=== PATIENT | female | born 1945 | race Caucasian/White ===

== ENCOUNTER 2016-06-24 12:50 | Day surgery (SDC) | payer MEDICARE, OTHER ==
[~2016-06-24] VITALS: Ht 165.1 cm; Wt 126.4 kg
[2016-06-24 13:27] LABS: BASOPHILS 0.3 % (0.0-2.0); EOSINOPHILS 2.1 % (0-7); HEMATOCRIT 28.7 % (36.0-48.0); HEMOGLOBIN 8.8 g/dL (12-16); IMMATURE GRANULOCYTES 1.1 % (0-5); LYMPHOCYTES 33.2 % (15-50); MCH 31.7 pg (26.0-34.0); MCHC 30.7 g/dL (31.0-37.0); MCV 103.2 fL (80.0-100.0); MEAN PLATELET VOLUME 8.6 fL (7.4-10.4); MONOCYTES 16.8 % (2-11); NEUTROPHILS 46.5 % (40-80); PLATELET COUNT 183 10x3/uL (130-400); RBC 2.78 10x6/uL (4.00-5.40); RDW 18.1 % (11.5-14.5); WBC 3.8 10x3/uL (4.8-10.8)
[2016-06-24 13:38] LABS: INR 1.21 (0.85-1.17); PROTIME 15.1 SECONDS (11.6-15.0)
[2016-06-24 13:39] LABS: APTT 28.5 SECONDS (22.8-39.4)
[2016-06-24 13:44] LABS: ANION GAP 13.1 mmol/L (8-16); CALCIUM 8.9 mg/dL (8.5-10.1); CARBON DIOXIDE 27.6 mmol/L (21.0-32.0); CREATININE - SERUM 1.4 mg/dL (0.6-1.3); POTASSIUM - SERUM 3.7 mmol/L (3.5-5.1)
[2016-06-24 14:12] VITALS: BP 124/58; Ht 165.1 cm; Wt 126.4 kg
[2016-06-24] MEDS ORDERED: CARAFATE1 G PO (16:33)
[2016-06-24] MEDS ORDERED: PROTONIX40 MG PO (16:33)
--- NOTE | 2016-07-08 11:23 | OP ---
PATIENT NAME: ESSENCE DUNHAM MEDICAL RECORD: [id number] :49 LOCATION:[facility] ADMISSION DATE: SURGEON: ADAN RAMOS MD DATE OF OPERATION: 06/24/2016 PROCEDURE: EGD without biopsy as the patient is still anticoagulated on Eliquis and aspirin. SCOPE: [employer] video gastroscope. MEDICATIONS: Per TIVA anesthesia. The indication for TIVA is history of atrial fibrillation. The patient also has other comorbidities to include arthritis, diabetes mellitus, hypertension, obstructive sleep apnea. REASON FOR THE PROCEDURE: Iron deficiency anemia as well as nausea. RISK FACTORS: Tobacco use. FINDINGS: Informed consent was given. The patient was made comfortable with the above medications. After reaching an adequate level of sedation by slow IV push, Mrs. Dunham was placed on her left side. The endoscope was then advanced under direct visualization through the posterior pharyngeal area and advanced to the distal esophagus. Only mild inflammation was noted. On entering the stomach, a couple of nonhemorrhagic very small arteriovenous malformations were noted within the gastric mucosa. These were not actively bleeding, but are a source of bleeding in the future and should be considered if no other reasonable reason for hemorrhage is noted. We advanced the scope to the antral area where a gastric ulcer was noted. This did not have a visible vessel and was not actively bleeding, but certainly could be a source of slow blood loss. The duodenal bulb to the second portion had some raised erythema tissue with inflammation present. The scope was then withdrawn. IMPRESSION: 1. Very mild distal esophagitis. 2. 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 3. Gastric ulcer at the antral area without a visible vessel, not actively bleeding. 4. Duodenitis moderate in the duodenal bulb and second portion. PLAN: 1. No anti-inflammatory drugs please. 2. Stop tobacco. 3. Pantoprazole 40 mg p.o. q.a.m. and sucralfate 1 g p.o. q.i.d. 4. Repeat the EGD in 8 weeks to document healing of ulcers. If the patient in this able to stop her Eliquis and aspirin for a longer period of time, we will photocoagulate these AVMs. TRANSINT:[id number] Voice Confirmation ID: [id number] DOCUMENT ID: [id number] OPERATIVE REPORT [id number] DUNHAM,ESSENCEADAN LAGUNAS MD at 1123 CC: SARAH MONTES MD and YESSENIA WALTON [phone] DICTATION DATE: 06/24/16 1601 LIBRARY CATALOGING TECHNICIAN: 06/24/162000 [facility] 06/24/16 [facility] [address] [id number]
== END 2016-06-24 17:10 | disposition home or self-care (01) ==
LOC: D.OPS 12:50
PROVIDERS: Anesthesiology
DX: D50.9 Iron deficiency anemia, unspecified (principal); I48.91 Unspecified atrial fibrillation; G47.33 Obstructive sleep apnea (adult) (pediatric); I10 Essential (primary) hypertension; E11.9 Type 2 diabetes mellitus without complications; F17.200 Nicotine dependence, unspecified, uncomplicated; K29.80 Duodenitis without bleeding; K25.9 Gastric ulcer, unspecified as acute or chronic, without hemorrhage or perforation; K20.9 Esophagitis, unspecified

== ENCOUNTER 2017-12-20 06:05 | Day surgery (SDC) | payer MEDICARE, OTHER ==
[~2017-12-20] VITALS: Ht 165.1 cm; Wt 115.9 kg
--- NOTE | ~2017-12-20 | OP ---
PATIENT NAME: ESSENCE DUNHAM MEDICAL RECORD: [id number] :49 LOCATION:[facility] ADMISSION DATE: SURGEON: GUEVARA MONTGOMERY DO DATE OF OPERATION: 12/20/2017 PROCEDURE: Colonoscopy with polypectomy. INDICATIONS FOR PROCEDURE: Anemia, which is iron deficient and a history of colon polyps. Her last colonoscopy was 12/18/14. SCOPE: [employer] video pediatric colonoscope. MEDICATIONS: Propofol 750 mg IV per anesthesia. WITHDRAWAL TIME: 20 minutes. ESTIMATED BLOOD LOSS: Minimal. COMPLICATIONS: None. FINDINGS: Informed consent was given. The patient was made comfortable with the above medication. After reaching an adequate level of sedation by slow IV push, the patient was placed on her left side. A digital rectal examination was performed and was normal other than the finding of some external hemorrhoids. The endoscope was advanced under direct visualization through the rectum to the cecum, confirmed by the presence of the appendiceal orifice and ileocecal valve. The endoscope was slowly withdrawn. Mucosa was carefully examined. The prep quality was fair. A significant amount of time was spent irrigating and suctioning stool from the cecum, ascending colon, and transverse colon for better visualization. There was 1 polyp seen on today's examination. It was located in the ascending colon. It measured approximately 1 cm in size. It was removed using endoscopic mucosal resection technique with injection of isotonic saline underneath the base of the polyp followed by hot snare polypectomy. There was evidence of mild diverticulosis involving the sigmoid colon without diverticulitis. Retroflexion was performed in the rectum with visualization of internal hemorrhoids, which were not bleeding. The endoscope was then withdrawn from the patient. The patient tolerated the procedure well and there were no complications. IMPRESSION: 1. A single polyp located in the ascending colon, removed using endoscopic mucosal resection technique. 2. Mild diverticulosis of the sigmoid colon. 3. Internal and external hemorrhoids without bleeding. PLAN AND RECOMMENDATIONS: 1. Discharge home when recovery parameters are met. 2. Follow up biopsy specimen results. 3. High fiber diet. 4. Continue current medications. 5. Recall colonoscopy in 3-5 years for continued surveillance of a personal history of polyps. TRANSINT:[id number] Voice Confirmation ID: [id number] DOCUMENT ID: [id number] OPERATIVE REPORT [id number] ESSENCE DUNHAM GUEVARA MONTGOMERY DO at 1351 CC: [id number] DICTATION DATE: 12/20/17 0926 [employer]AL: 12/20/17 1234 [facility] 12/20/[address] [id number] [facility] [place] [address]
[~2017-12-20 06:05] MED LIST: CARAFATE1 G PO; PROTONIX40 MG PO
[2017-12-20 06:31] LABS: HEMATOCRIT 37.8 % (36.0-48.0); HEMOGLOBIN 11.9 g/dL (12-16); MCHC 31.5 g/dL (31.0-37.0); MCV 85.7 fL (80.0-100.0); MEAN PLATELET VOLUME 8.9 fL (7.4-10.4); RBC 4.41 10x6/uL (4.00-5.40); RDW 16.1 % (11.5-14.5); WBC 6.7 10x3/uL (4.8-10.8)
[2017-12-20 06:32] LABS: APTT 26.9 SECONDS (22.8-39.4); INR 1.04 (0.85-1.17); PROTIME 13.2 SECONDS (11.6-15.0)
[2017-12-20 06:53] LABS: ANION GAP 13.9 mmol/L (8-16); CALCIUM 9.5 mg/dL (8.5-10.1); CARBON DIOXIDE 28.1 mmol/L (21.0-32.0); CREATININE - SERUM 1.2 mg/dL (0.6-1.3)
[2017-12-20] MEDS ORDERED: AMBIEN10 MG PO (07:41)
[2017-12-20] MEDS ORDERED: REQUIP1 MG PO (07:41)
[2017-12-20] MEDS ORDERED: LYRICA150 MG PO (07:41)
[2017-12-20] MEDS ORDERED: ELIQUIS5 MG PO (07:41)
[2017-12-20] MEDS ORDERED: BUMEX2 MG PO (07:42)
[2017-12-20] MEDS ORDERED: TOPROL XL25 MG PO (07:43)
[2017-12-20] MEDS ORDERED: K-TAB10 MEQ PO (07:43)
[2017-12-20] MEDS ORDERED: NORCO 7.5/325 T1 TA1 PO (07:44)
[2017-12-20] MEDS ORDERED: K-DUR20 MEQ PO (07:45)
[2017-12-20] MEDS ORDERED: LIPITOR20 MG PO (07:46)
[2017-12-20] MEDS ORDERED: NOVOLIN R100 U/ML SQ (07:47)
[2017-12-20] MEDS ORDERED: VICTOZA0.6 MG/0.1 SQ (07:48)
[2017-12-20] MEDS ORDERED: PROTONIX40 MG PO (07:49)
[2017-12-20] MEDS ORDERED: PEPCID AC20 MG PO (07:49)
[2017-12-20 07:55] VITALS: BP 113/72; Ht 165.1 cm; Wt 115.9 kg
== END 2017-12-20 10:20 | disposition home or self-care (01) ==
LOC: D.OPS 06:05
PROVIDERS: Anesthesiology
DX: D12.2 Benign neoplasm of ascending colon (principal); K57.30 Diverticulosis of large intestine without perforation or abscess without bleeding; K64.8 Other hemorrhoids; K64.4 Residual hemorrhoidal skin tags; D50.9 Iron deficiency anemia, unspecified; Z86.010 Personal history of colon polyps; Z01.812 Encounter for preprocedural laboratory examination

== ENCOUNTER 2018-08-24 18:53 | Inpatient (IN) | payer MEDICARE, OTHER ==
[~2018-08-24] VITALS: Ht 165.1 cm; Wt 96.0 kg
[~2018-08-24 18:53] MED LIST changes: +AMBIEN10 MG PO; +BUMEX2 MG PO; +ELIQUIS5 MG PO; +K-DUR20 MEQ PO; +K-TAB10 MEQ PO; +LIPITOR20 MG PO; +LYRICA150 MG PO; +NORCO 7.5/325 T1 TA1 PO; +NOVOLIN R100 U/ML SQ; +PEPCID AC20 MG PO; +REQUIP1 MG PO; +TOPROL XL25 MG PO; +VICTOZA0.6 MG/0.1 SQ
[2018-08-24] MEDS ORDERED: ALENDRONATE SODI5 MG (19:02)
[2018-08-24] MEDS ORDERED: BREO ELLIPTA 11 EACH INH (19:03)
[2018-08-24] MEDS ORDERED: ROCEPHIN 1 GM/D51 G1 IV (19:03)
[2018-08-24] MEDS ORDERED: CALCIUM 500 +1 EAC3 PO (19:03)
[2018-08-24] MEDS ORDERED: CYMBALTA60 MG PO (19:04)
[2018-08-24] MEDS ORDERED: CARDIZEM60 MG PO (19:04)
[2018-08-24] MEDS ORDERED: CYCLOBENZAPRINE10 MG PO (19:04)
[2018-08-24] MEDS ORDERED: PEPCID AC20 MG PO (19:05)
[2018-08-24] MEDS ORDERED: FERROUS SULFAT325 MG PO (19:05)
[2018-08-24] MEDS ORDERED: ZYVOX600 MG PO (19:06)
[2018-08-24 19:19] LABS: BASOPHILS 0.2 % (0-2); EOSINOPHILS 0.6 % (0-7); HEMATOCRIT 28.3 % (36.0-48.0); HEMOGLOBIN 9.3 g/dL (12-16); IMMATURE GRANULOCYTES 0.8 % (0-5); LYMPHOCYTES 6.5 % (15-50); MCH 30.1 pg (26.0-34.0); MCHC 32.9 g/dL (31.0-37.0); MCV 91.6 fL (80.0-100.0); MEAN PLATELET VOLUME 8.7 fL (7.4-10.4); MONOCYTES 14.1 % (2-11); NEUTROPHILS 77.8 % (40-80); RBC 3.09 10x6/uL (4.00-5.40); RDW 16.4 % (11.5-14.5); WBC 13.2 10x3/uL (4.8-10.8)
[2018-08-24 19:20] LABS: PLATELET COUNT 313 10x3/uL (130-400)
[2018-08-24 19:30] LABS: APTT 31.1 SECONDS (22.8-39.4); INR 1.33 (0.85-1.17)
[2018-08-24 19:45] LABS: ALBUMIN 2.3 g/dL (3.4-5.0); ALKALINE PHOSPHATASE 151 U/L (46-116); ALT (SGPT) 46 U/L (10-68); CALC OSMOLALITY 291 mosm/kg (275-300); CALCIUM 9.4 mg/dL (8.5-10.1); CARBON DIOXIDE 27.7 mmol/L (21.0-32.0); CHLORIDE - SERUM 107 mmol/L (98-107); CREATININE - SERUM 2.1 mg/dL (0.6-1.3); GLUCOSE 142 mg/dL (74-106); POTASSIUM - SERUM 4.1 mmol/L (3.5-5.1); PROTEIN - SERUM 6.9 g/dL (6.4-8.2); SODIUM 144 mmol/L (136-145); UREA NITROGEN 21 mg/dL (7-18); eGFR NON AFRICAN AMERICAN 25 mL/min (90-120)
[2018-08-24 20:00] VITALS: BP 128/74
[2018-08-24 20:02] LABS: CKMB 1.4 U/L (0.0-3.6); CREATINE KINASE 27 UL (21-215); PRO BNP 11915 pg/mL (0-125)
[2018-08-24 20:04] LABS: TROPONIN-I < 0.017 ng/mL (0.000-0.060)
--- NOTE | 2018-08-24 20:12 | NUR ---
SPOKE WITH PT'S NURSE MATHEW AT [facility], INFORMED HER THAT PT WILL BE BEING ADMITTED TO HOSPITAL.
--- NOTE | 2018-08-24 21:19 | NUR ---
PT'S IV ROCEPHIN FINISHED.
--- NOTE | 2018-08-24 21:26 | NUR ---
INGRIS LAMB DAUGHTER: [phone]. CAROL DUNHAM DAUGHTER: [phone].
--- NOTE | 2018-08-24 22:05 | NUR ---
Patient arrived from ED via stretcher to 230, positioned in bed and connected to monitor. Patient lethargic, follows instructions with no verbal response. Eyes PERRLA @ 3mm with brisk response, tongue midline. S1/S2 noted uncontrolled Afib on telemetry with HR 127. Breathing is labored on 15L via NRB with O2 sat 97%, lung sounds clear bilateral upper and mid with diminished lower. All pulses palpable with cap refill < 3 sec, skin warm/dry. Unable to assess pain, no further needs at this time. Dr Tenorio paged to notify of arrival, awaiting return call. All VSS and will continue to monitor.
--- NOTE | 2018-08-24 22:08 | NUR ---
Spoke to Dr Tenorio via phone, updated on patient status with new orders received. Cardiology consulted per orders.
--- NOTE | 2018-08-24 22:10 | NUR ---
Spoke to Dr Wolfe via phone, new orders received. 10mg/hr Cardizem ordered, physician to be notified for significant bradycardia.
[2018-08-24 22:19] VITALS: BP 127/101; BMI 36.2
[2018-08-24 22:30] VITALS: BP 127/100
[2018-08-24 23:00] VITALS: BP 128/93
[2018-08-25] VITALS (25 sets, daily range): BP systolic 124–166; BP diastolic 70–108; BMI 36.2
--- NOTE | 2018-08-25 01:00 | NUR ---
Patient sleeping in bed with eyes closed, no s/s of distress at this time. Patient remains Uncontrolled Afib on telemetry with HR 104, breathing is shallow on 7L via HFNC with O2 sat 96%. No further needs at this time, all VSS and will continue to monitor.
--- NOTE | 2018-08-25 02:57 | NUR ---
Reassessment completed per flowsheet. Patient opens eyes spontaneously/follow instructions, inconprehensible sounds noted. S1/S2 noted Controlled Afib on telemetry with HR 78. Breathing is shallow on 7L via HFNC with O2 sat 96%, lung sounds clear bilateral upper and mid with diminished lower. All pulses palpable with cap refill < 3 sec, skin warm/dry. Unable to assess pain, repositioned for comfort. See flowsheet for details, all VSS and will continue to monitor.
--- NOTE | 2018-08-25 05:00 | NUR ---
Patient sleeping in bed with eyes closed, incontinent of urine in bed. Full bed bath/linen change performed, patient HR elevated during movement but returned to previous level after short rest. Denies pain or other needs at this time, all VSS and will continue to monitor.
--- NOTE | 2018-08-25 07:30 | NUR ---
REPORT RECEIVED. PT IN BED AWAKE AND CONFUSED. PT HAS PICC LINE IN WILFREDO. PT HAS CARDIZEM DRIP AT 10ML/HR. PT IS INCONTINENT OF URINE. HEAD TO TOE ASSESSMENT PERFORMED. ON 7L HIGH FLOW NC. WILL CONTINUE TO MONITOR.
--- NOTE | 2018-08-25 09:00 | NUR ---
18FR CAMEJO PLACED AT THIS TIME, CHLORHEXADINE BATH GIVEN, PT TOLERATED WELL
--- NOTE | 2018-08-25 11:15 | NUR ---
PT RESTING QUIETLY. VSS. CARDIZEM DRIP. WILL CONTINUE TO MONITOR.
--- NOTE | 2018-08-25 13:40 | NUR ---
PT FRIEND AT BEDSIDE. TOOK ORAL MEDICATION WITH THIN LIQUIDS WITH NO ISSUES. [facility] NURSE HERE TO CHECK ON PT.
--- NOTE | 2018-08-25 14:21 | NUR ---
SPEECH PATHOLOGIST JUST IN WITH PT.
--- NOTE | 2018-08-25 15:45 | NUR ---
PT RESTING QUIETLY. ON 7L HIGH FLOW NC. O2 SAT 96%. VSS. WILL CONTINUE TO MONITOR.
--- NOTE | 2018-08-25 17:33 | NUR ---
PT ATE A FEW BITES OF HER MEAL THEN STATED SHE DIDN'T HAVE AN APPETITE. OFFERED PUDDING AND APPLESAUCE. DECLINED.
--- NOTE | 2018-08-25 19:00 | NUR ---
REPORT REC'D, PT'S CARE ASSUMED. ASSESSMENT COMPLETED. SEE FLOWSHEETS FOR ALL FINDINGS. PT SLEEPING, AROUSES EASILY WITH VOICES, FOLLOW SIMPLE COMMNADS. CONT AFIB ON DIRECTOR OF CLINICAL SERVICES WITH HR AT 82. CONT CARDIZEM DRIP PER ORDER. RT UPPER ARM PICC LINE INTACT, INFUSING IV FLUIDS VIA PUMP PER ORDER. CAMEJO INTACT TO GRAVITY WITH YELLOW DRAINAGE TO BAG. PPP. CALL LIGHT IN REACH. REPOSITIONED FOR COMFORT. WILL CONT TO MONITOR.
--- NOTE | 2018-08-25 20:55 | NUR ---
PT'S DAUGHTER INGRIS CALLED FOR UPDATE. UPDATED AND QUESTIONS ANSWERED.
--- NOTE | 2018-08-25 22:00 | NUR ---
PT AWAKE WITH HOB UP TAKING PO MEDS PER ORDER WITHOUT DIFFIC. NO S/S OF COUGHING. REPOSITIONED FOR COMFORT. CALL LIGHT IN REACH. CONT TO MONITOR.
--- NOTE | 2018-08-25 23:00 | NUR ---
REASSESSMENT COMPLETED. SEE FOWSHEETS FOR ALL FINDINGS. PT AROUSES EASILY WITH VOICES, DENIES ANY NEEDS AT THIS TIME. NO ACUTE SIGNS OF DISTRESS NOTED. CONT TO MONITOR.
[2018-08-26] VITALS (28 sets, daily range): BP systolic 70–152; BP diastolic 45–92; Ht 165.1 cm; Wt 96.0 kg
--- NOTE | 2018-08-26 01:00 | NUR ---
PT RESTING QUIELTY WITHOUT DISTRESS AT THIS TIME. VSS. NO NEEDS VOICES. CPOC.
--- NOTE | 2018-08-26 03:00 | NUR ---
REASSESSMENT COMPLETED. SEE FLOW SHEETS FOR ALL FINDINGS. NO ACUTE CHANGES IN PT'S CONDITON NOTED. VSS. CONT CARDIZEM DIRIP PER ORDER. CPOC.
--- NOTE | 2018-08-26 05:00 | NUR ---
PT RESTING QUIELTY WITHOUT DISTRESS. NO NEEDS VOICES AT THIS TIME .CALL LIGHT IN REACH. CPOC.
--- NOTE | 2018-08-26 07:05 | NUR ---
REPORT RECEIVED. PT RECEIVING BREATHING TREATMENT. PT HAS CAMEJO. PICC IN RIGHT UPPER ARM WITH CARDIZEM INFUSING AT 10ML/HR. PT ON O2 AT 4L VIA HIGH FLOW NC. PT HAS SORES ON BILATERAL FEET/TOES. DRESSING INTACT. HEAD TO TOE ASSESSMENT PERFORMED. VSS. WILL CONTINUE TO MONITOR. CALL LIGHT IN REACH.
[2018-08-26 07:08] LABS: ANION GAP 16.4 mmol/L (8-16); CALCIUM 8.7 mg/dL (8.5-10.1); CARBON DIOXIDE 27.7 mmol/L (21.0-32.0); CREATININE - SERUM 2.3 mg/dL (0.6-1.3); POTASSIUM - SERUM 4.1 mmol/L (3.5-5.1)
[2018-08-26] MEDS ORDERED: LIPITOR20 MG PO (07:11)
[2018-08-26 07:15] LABS: HEMATOCRIT 26.2 % (36.0-48.0); HEMOGLOBIN 8.5 g/dL (12-16); MCH 29.5 pg (26.0-34.0); MCHC 32.4 g/dL (31.0-37.0); PLATELET COUNT 287 10x3/uL (130-400); RBC 2.88 10x6/uL (4.00-5.40); RDW 16.1 % (11.5-14.5); WBC 12.6 10x3/uL (4.8-10.8)
[2018-08-26 08:37] LABS: LYMPHOCYTES 3 % (15-50); MONOCYTES 10 % (2-11); NEUTROPHILS 86 % (40-80); PLATELET ESTIMATE NORMAL
[2018-08-26 08:38] LABS: ANISOCYTOSIS 2+; HYPOCHROMASIA 2+
--- NOTE | 2018-08-26 09:20 | NUR ---
DR PAEZ IN WITH PT. NO NEW ORDERS AT THIS TIME. PT RESTING QUIETLY. VSS. WILL CONTINUE TO MONITOR.
--- NOTE | 2018-08-26 11:10 | NUR ---
REASSESSMENT DONE. PT RESTING QUIETLY. VSS. WILL CONTINUE TO MONITOR.
--- NOTE | 2018-08-26 11:57 | NUR ---
NUTRITION F/U PT CURRENTLY NPO. WILL PROVIDE DIET WHEN RESUMED BY MD. ASSIST WITH NUTRITION SUPPORT IF NEEDED. RD FOLLOWING
[2018-08-26] MEDS ORDERED: LANTUS INSULIN10 ML SC (12:37)
[2018-08-26] MEDS ORDERED: MULTI-DAY VITAM1 TAB PO (12:41)
[2018-08-26] MEDS ORDERED: MIRALAX17 GM PO (12:43)
[2018-08-26] MEDS ORDERED: ZINC-220220 MG PO (12:46)
[2018-08-26] MEDS ORDERED: NOVOLOG100 UNIT/1 SC (13:04)
--- NOTE | 2018-08-26 13:51 | NUR ---
CARDIZEM DRIP TITRATED DOWN FROM 10MG/HR TO 7.5MG/HR PER DR GREER. HR 85-91. BP 134/62. WILL MONITOR.
--- NOTE | 2018-08-26 15:44 | NUR ---
PT CONTINUING TO BREATH THROUGH MOUTH AND O2 SAT AT 87%. VENTI MASK PUT ON PER RT. O2 SAT CONTINUED TO STAY AROUND 88. PT UP TO 55%. STARTED CALMING DOWN. O2 SAT UP TO 94%. WILL MONITOR AND TITRATE DOWN PER RT.
--- NOTE | 2018-08-26 16:29 | NUR ---
ABG OBTAINED. DR GREER WANTS TO INTUBATE PT. RAYO, SPRING UP SUPERVISOR, CALLED PT'S FAMILY TO CONSENT TO INTUBATION.
--- NOTE | 2018-08-26 16:55 | NUR ---
PT INTUBATED BY DR GREER. 7.5 TUBE. 25CM AT THE LIP. PROPOFOL INFUSING PER ORDERS. SETTINGS PER RT. 96% O2 SAT.
--- NOTE | 2018-08-26 17:30 | NUR ---
DR GREER DOING BRONCHOSCOPY ON PT. FENTANYL PARKING ANALYST INITIATED. BP 91/26. O2 ON 97% ON VENT. NS BOLUS INFUSING AT THIS TIME. HR 133. 1734- 137/84; HR 93.
--- NOTE | 2018-08-26 17:37 | NUR ---
BRONCHOSCOPY DONE. HR 83; O2 SAT 97%; BP IS 94/58.
--- NOTE | 2018-08-26 18:24 | NUR ---
22 GAUGE IV INSERTED INTO RIGHT FOREARM. CARDIZEM DRIP INFUSING AT 5MG/HR INTO SITE.
--- NOTE | 2018-08-26 19:02 | NUR ---
CHANGED FIO2 TO 60% PER ABG RESULT 300
--- NOTE | 2018-08-26 19:20 | NUR ---
REPORT REC'D AND CARE ASSUMED, REC'D PT ON VENT VIA 7.5 ETT TAPED SECURELY AT THE 25CM LIPLINE, SEE FLOWSHEET FOR VENT SETTINGS, PT AROUSABLE TO DEEP STIMULI, TRACKS WITH EYES BUT DOES NOT FOLLOW COMMANDS AT THIS TIME, RIGHT FOREARM PIV WITH CARDIZEM @ 5MG/HR, RIGHT UPPER ARM PICC WITH 3 PRONG EXTENSION NS @ 10CC/HR, FENTANYL @ 50MCG/HR, AND DIPRIVAN @ 10MCG/KG/MIN, BILAT ARMS WITH BRUISES, OGT TAPED SECURELY TO ETT, PLACEMENT VERIFIED VIA SM AIR BOLUS AUSCULTATED OVER EPIGASTRIM, OGT TO LIWS, CAMEJO PATENT DRAINING CLEAR YELLOW URINE, BILAT SCDS INTACT, DRSGS TO RIGHT LEFT GREAT AND SECOND TOE CDI, BILAT SOFT WRIST RESTRAINTS INTACT, VISIBLE TO NURSES STATION
--- NOTE | 2018-08-26 20:15 | NUR ---
PHARMACY CALLED FOR MAXIPIME DOSE NOT LOADED IN PYXIS
--- NOTE | 2018-08-26 21:00 | NUR ---
EVENING MEDS GIVEN ORDERED, BP 89/58, LOPRESSOR HELD AT THIS TIME, WILL CONT TO MONITOR CLOSELY FOR CHANGES.
--- NOTE | 2018-08-26 22:05 | NUR ---
DAUGHTER INGRIS AT BS, UPDATE GIVEN AND [facility] ANSWERED, PT RESTING EYES CLOSED ON VENT, VSS.
--- NOTE | 2018-08-26 23:30 | NUR ---
REASSESSMENT COMPLETED, PT REPOSITIONED UP IN BED AND ONTO RIGHT SIDE SUPPORTED WITH PILLOWS, HOB ELEVATED, RT AT BS CHANGING TUBING AND CANNISTERS, SR UP X 2, BED IN LOW POSITION.
[2018-08-27] VITALS (24 sets, daily range): BP systolic 85–133; BP diastolic 50–87
--- NOTE | 2018-08-27 02:00 | NUR ---
NO CHANGES IN STATUS AT THIS TIME.
--- NOTE | 2018-08-27 04:49 | NUR ---
CHANGED FIO2 TO 50% PER MORNING ABG, PO2 165
--- NOTE | 2018-08-27 05:30 | NUR ---
AM LAB DRAWN FROM RIGHT UPPER ARM PICC LINE AND SENT, NO VISITORS IN AT THIS TIME, VSS.
[2018-08-27 05:48] LABS: BASOPHILS 0.1 % (0-2); EOSINOPHILS 1.5 % (0-7); HEMATOCRIT 21.8 % (36.0-48.0); LYMPHOCYTES 12.5 % (15-50); MCH 28.9 pg (26.0-34.0); MCHC 31.7 g/dL (31.0-37.0); MCV 91.2 fL (80.0-100.0); MEAN PLATELET VOLUME 8.8 fL (7.4-10.4); MONOCYTES 12.5 % (2-11); NEUTROPHILS 72.4 % (40-80); PLATELET COUNT 237 10x3/uL (130-400); RBC 2.39 10x6/uL (4.00-5.40); RDW 15.9 % (11.5-14.5); WBC 7.9 10x3/uL (4.8-10.8)
[2018-08-27 05:49] LABS: HEMOGLOBIN 6.9 g/dL (12-16)
[2018-08-27 06:13] LABS: ALBUMIN 1.8 g/dL (3.4-5.0); ANION GAP 12.3 mmol/L (8-16); BILIRUBIN - TOTAL 0.36 mg/dL (0.2-1.3); CALCIUM 8.5 mg/dL (8.5-10.1); CREATININE - SERUM 2.6 mg/dL (0.6-1.3); POTASSIUM - SERUM 3.3 mmol/L (3.5-5.1); PROTEIN - SERUM 6.1 g/dL (6.4-8.2)
--- NOTE | 2018-08-27 08:12 | NUR ---
UP IN BED ON VENT AT THIS TIME. PT OPENS EYES WHEN SPOKEN TO AND NODS HEAD AT TIMES. DOES NOT FOLLOW COMMANDS. WHEN ASKED PT TO SQUEEZE HANDS SHE NODDED HER HEAD ONLY. PT TURNED Q2H. ORAL CARE PROVIDED Q2H. NO ACUTE DISTRESS NOTED. WILL CONTINUE PLAN OF CARE.
--- NOTE | 2018-08-27 08:26 | NUR ---
PER DR GREER, KEEP PT ON LT LATERAL SIDE.
--- NOTE | 2018-08-27 08:30 | NUR ---
PER DR GREER "DO NOT GIVE BLOOD TODAY BECAUSE PT IS A RISK FOR ACUTE LUNG INJURY." ALSO ORDERED FOR CARDIZEM RATE TO BE DECREASED FROM 5MG/HR TO 2.5MG/HR
--- NOTE | 2018-08-27 09:04 | NUR ---
PER PTS FAMILY, PT SQUEEZED HAND WHEN FAMILY MEMBER WAS TALKING WITH HER.
--- NOTE | 2018-08-27 09:20 | NUR ---
PER DR GREER, TURN OFF CARDIZEM GTT. ALSO OKAY TO HOLD METOPROLOL SINCE HEART RATE TRENDING 54-64.
--- NOTE | 2018-08-27 11:40 | NUR ---
PT NOTED TO ATTEMPT TO SIT UP, PULL ET TUBE WITH RESPIRATIONS IN MID 30S. REORIENTATION PROVIDED. PROPOFOL INCREASED TO ORDER PARAMETERS. TURNED Q2H. ORAL CARE PROVIDED Q2H. WILL CONTINUE PLAN OF CARE.
--- NOTE | 2018-08-27 13:41 | NUR ---
INCONTINENT BOWEL MOVEMENT NOTED AT THIS TIME. TOTAL BED CHANGE PROVIDED ALONG WITH BED BATH, GRETCHEN CARE, CAMEJO CARE ALSO PROVIDED AT THIS TIME. NO ACUTE DISTRESS NOTED. WILL CONTINUE PLAN OF CARE.
--- NOTE | 2018-08-27 15:02 | NUR ---
NO ACUTE DISTRESS NOTED. NO CHANGE. PT OPENS EYES WHEN SPOKEN TO. TURNED Q2H. ORAL CARE PROVIDED Q2H. WILL CONTINUE PLAN OF CARE.
--- NOTE | 2018-08-27 17:04 | NUR ---
UP IN BED RESTING ON VENT WITH EYES CLOSED. NO ACUTE DISTRESS NOTED. BED ALARM ON. VSS. WILL CONTINUE PLAN OF CARE.
--- NOTE | 2018-08-27 19:30 | NUR ---
REC'D PT ON VENT VIA 7.5 ETT TAPED @ 25CM LIPLINE, SEE FLOWSHEET FOR VENT SETTINGS, PT AWAKENS TO VERBAL STIMULI AND FOLLOWS COMMANDS, FALLS BACK TO SLEEP EASILY, RIGHT UPPER ARM SINGLE LUMEN CATHETER WITH NS @ 10CC/HR, FENTANYL @ 50MCG/HR, AND DIPRIVAN @ 30MCG/KG/MIN OR 19.1CC/HR, OGT TAPED SECURELY TO ETT, PLACEMENT VERIFIED VIA SM AIR BOLUS AUSCULTATED OVER EPIGASTRIM, OGT TO LIWS, CAMEJO PATENT DRAINING CLEAR YELLOW URINE, BILAT SCDS INTACT AND ON, BILATERAL DRSGS TO GREAT AND 2ND TOES CDI, BILAT SOFT WRIST RESTRAINTS INTACT, SR UP X 2, BED IN LOW POSITION, VISIBLE TO NURSES STATION.
--- NOTE | 2018-08-27 21:00 | NUR ---
EVENING MEDS GIVEN, NO VISITORS IN AT THIS TIME, PT REPOSITIONED FOR COMFORT, VSS ,WILL CONT TO MONITOR FOR CHANGES
--- NOTE | 2018-08-27 23:15 | NUR ---
REASSESSMENT COMPLETED, PT REPOSITIONED FOR COMFORT, PT COUGHING AGAINST ETT, SUCTIONED WITH SMALL AMOUNT YELLOW TINGED SECRETIONS, DOES NOT FOLLOW COMMANDS AT THIS TIME, VSS, CM- SR, SR UP X 2, BED IN LOW POSITION, VISIBLE TO NURSES STATION.
[2018-08-28] VITALS (24 sets, daily range): BP systolic 92–144; BP diastolic 53–85
--- NOTE | 2018-08-28 01:00 | NUR ---
PT REPOSITIONED FOR COMFORT, ORAL CARE PROVIDED, PT TOLERATED WELL, WILL CONT TO MONITOR FOR CHANGES.
--- NOTE | 2018-08-28 03:00 | NUR ---
REASSESSMENT COMPLETED, NO CHANGES FROM PREVIOUS ASSESSMENT.
--- NOTE | 2018-08-28 04:30 | NUR ---
RADIOLOGY AT BS FOR AM CXR.
--- NOTE | 2018-08-28 05:30 | NUR ---
AM LAB DRAWN AND SENT, PT RESTLESS IN BED, PULLING AT RESTRAINTS, PT REPOSITIONED AND ORAL CARE PROVIDED, VSS, WILL CONTINUE TO MONITOR.
[2018-08-28 06:31] LABS: BASOPHILS 0.3 % (0-2); EOSINOPHILS 3.1 % (0-7); HEMATOCRIT 22.6 % (36.0-48.0); IMMATURE GRANULOCYTES 2.6 % (0-5); LYMPHOCYTES 13.9 % (15-50); MCH 29.6 pg (26.0-34.0); MCHC 32.7 g/dL (31.0-37.0); MCV 90.4 fL (80.0-100.0); MEAN PLATELET VOLUME 8.9 fL (7.4-10.4); MONOCYTES 13.9 % (2-11); NEUTROPHILS 66.2 % (40-80); PLATELET COUNT 261 10x3/uL (130-400)
[2018-08-28 06:34] LABS: WBC 5.8 10x3/uL (4.8-10.8)
[2018-08-28 06:35] LABS: HEMOGLOBIN 7.4 g/dL (12-16)
[2018-08-28 06:53] LABS: ALBUMIN 1.8 g/dL (3.4-5.0); ANION GAP 15.6 mmol/L (8-16); BILIRUBIN - TOTAL 0.39 mg/dL (0.2-1.3); CARBON DIOXIDE 25.7 mmol/L (21.0-32.0); CREATININE - SERUM 2.5 mg/dL (0.6-1.3); POTASSIUM - SERUM 3.3 mmol/L (3.5-5.1)
--- NOTE | 2018-08-28 07:43 | NUR ---
LYING IN BED ON VENT AT THIS TIME. NO ACUTE DISTRESS NOTED. PT OPENS EYES WHEN SPOKEN TO. ABLE TO FOLLOW COMMANDS. TURNED Q2H. ORAL CARE PROVIDED Q2H. WILL CONTINUE PLAN OF CARE.
--- NOTE | 2018-08-28 09:30 | NUR ---
NO ACUTE DISTRESS NOTED. NO CHANGE. PT OPENS EYES WHEN SPOKEN TO AND FOLLOWS COMMANDS. WILL CONTINUE PLAN OF CARE.
--- NOTE | 2018-08-28 10:00 | NUR ---
NOTED ORDER FOR PT TO RECIEVE BLOOD TODAY, PT DOES NOT HAVE BLOOD CONSENT IN CHART. ATTEMPTED TO CALL PTS DAUGHTER/EMERGENCY CONTACT, NO ANSWER RECIEVED WHEN CALLED, VOICEMAIL LEFT. WAITING FOR CALLBACK. WILL CONTINUE PLAN OF CARE.
--- NOTE | 2018-08-28 12:00 | NUR ---
1 U PRBC ADMIN INITIATED AT THIS TIME PER PHYSICIAN ORDERS. NO ACUTE DISTRESS NOTED. WILL CONTINUE PLAN OF CARE.
--- NOTE | 2018-08-28 12:43 | NUR ---
NO ACUTE DISTRESS NOTED. NO CHANGE. VSS. WILL CONTINUE PLAN OF CARE.
[2018-08-28 13:06] LABS: ACID FAST SMEAR Negative (()); AFB SPECIMEN PROCESSING Concentration (())
--- NOTE | 2018-08-28 13:26 | NUR ---
PTS DAUGHTER CAROL AT BEDSIDE AT THIS TIME, ALL QUESTIONS AND CONCERNS ADRESSED. NO ACUTE DISTRESS NOTED. PT RESTING ON VENT AT THIS TIME ON VENT WITH EYES CLOSED. OPENS EYES WHEN SPOKEN TO AND FOLLOWS COMMANDS. NO ACUTE DISTRESS NOTED. WILL CONTINUE PLAN OF CARE.
--- NOTE | 2018-08-28 14:43 | NUR ---
POTASSIUM LEVEL RECHECK NOTED AT 3.9.
--- NOTE | 2018-08-28 16:28 | NUR ---
NO ACUTE DISTRESS NOTED. VSS. NO CHANGE. WILL CONTINUE PLAN OF CARE.
--- NOTE | 2018-08-28 18:28 | NUR ---
NO ACUTE DISTRESS NOTED. PT OPENS EYES TO VOICE AND FOLLOW COMMANDS. NOTED TO HAVE RESPIRATIONS UP TO 35 AT TIMES, ABLE TO CALM PT DOWN AFTER SPEAKING WITH HER. VSS. WILL CONTINUE PLAN OF CARE.
--- NOTE | 2018-08-28 19:10 | NUR ---
Received patient resting in bed on vent with eyes closed, assessment completed per flowsheet. Patient opens eyes spontaneously/follows instructions, ETT 7.5 @ 25cm secured. S1/S2 noted Controlled Afib on telemetry with HR 93. Vent settings A/C R-16 V-450 40% P-5 with O2 sat 98%, crackles noted bilateral upper and mid with diminished lower. Abdomen is soft/round with bowel sounds active x4, non-tender. All pulses palpable with cap refill < 3 sec, skin warm/dry. GLOBAL CEO in use for pain mgmt, oral care/suctioning provided. Repositioned for comfort, see flowsheet for details. All VSS and will continue to monitor.
--- NOTE | 2018-08-28 21:00 | NUR ---
Patient resting in bed on vent with eyes closed, oral care/suctioning provided. HS meds given via OGT without difficulty, repositioned for comfort. No further needs at this time, all VSS and will continue to monitor.
--- NOTE | 2018-08-28 23:00 | NUR ---
Reassessment completed per flowsheet, no chnages noted from previous assessment. S1/S2 noted Controlled Afib on telemetry with HR 91. Vent settings unchanged from previous with O2 sat 97%, crackles noted bilateral upper and mid with diminished lower. All pulses palpable with cap refill < 3 sec, skin warm/dry. Oral care/suctioning provided, repositioned for comfort. No further needs at this time, see flowsheet for details. All VSS and will continue to monitor.
[2018-08-29] VITALS (26 sets, daily range): BP systolic 108–165; BP diastolic 52–98
--- NOTE | 2018-08-29 01:00 | NUR ---
Patient sleeping in bed on vent with eyes closed, no s/s of distress at this time. Oral care/suctioning provided, repositioned for comfort. All VSS and will continue to monitor.
--- NOTE | 2018-08-29 03:04 | NUR ---
Reassessment completed per flowsheet, no changes from previous assessment. ETT/OGT secured, OGT to LIWS. S1/S2 noted Controlled Afib on telemetry with HR 72, rythmic and regular. Vent settings unchanged from previous wtih O2 sat 98%, crackles noted bilateral upper and mid with diminished lower. All pulses palpable with cap refill < 3 sec, skin warm/dry. INVISIBLE BRACES ORTHODONTIST in use for pain mgmt, oral care/suctioning provided. Bed bath/linen change performed, repositioned for comfort. See flowsheet for details, all VSS and will continue to monitor.
[2018-08-29 04:51] LABS: HEMATOCRIT 25.3 % (36.0-48.0); HEMOGLOBIN 8.6 g/dL (12-16); LYMPHOCYTES 13.7 % (15-50); MCH 30.8 pg (26.0-34.0); MCV 90.7 fL (80.0-100.0); MEAN PLATELET VOLUME 8.1 fL (7.4-10.4); NEUTROPHILS 71.2 % (40-80); PLATELET COUNT 295 10x3/uL (130-400); RDW 15.4 % (11.5-14.5); WBC 6.5 10x3/uL (4.8-10.8)
[2018-08-29 04:52] LABS: RBC 2.79 10x6/uL (4.00-5.40)
[2018-08-29 04:57] LABS: ALBUMIN 1.8 g/dL (3.4-5.0); ANION GAP 12.3 mmol/L (8-16); BILIRUBIN - TOTAL 0.58 mg/dL (0.2-1.3); CALCIUM 9.1 mg/dL (8.5-10.1); CARBON DIOXIDE 27.3 mmol/L (21.0-32.0); CREATININE - SERUM 2.5 mg/dL (0.6-1.3); POTASSIUM - SERUM 3.6 mmol/L (3.5-5.1); PROTEIN - SERUM 6.2 g/dL (6.4-8.2)
--- NOTE | 2018-08-29 05:00 | NUR ---
Patient resting in bed with eyes closed on vent, no s/s of distress at this time. Oral care/suctioning provided, repositioned for comfort and will continue to monitor.
--- NOTE | 2018-08-29 09:03 | NUR ---
Nutrition Follow Up: Pt is NPO on vent with OGT Noted possible extubation today RD following
--- NOTE | 2018-08-29 09:33 | NUR ---
0700 ON VENT CPAP REFUSES TO FOLLOW COMMANDS ABGS DRAWN ASSESSSMENT COMPLETE
--- NOTE | 2018-08-29 09:34 | NUR ---
0900 SUCTION THICK YELLOW SPUTUM FROM EET ORAL CARE PROVIDED REPOSITIONED IN BED
--- NOTE | 2018-08-29 09:35 | NUR ---
0915 EXTUBATED TOLERATED WELL PLACED ON 3L NC O2 SAT RREMAINS 98%
--- NOTE | 2018-08-29 13:56 | NUR ---
1100 REDUCED 02 TO 2L/NC KIKO WELL [id number] TO TAKE PO MEDS
--- NOTE | 2018-08-29 13:57 | NUR ---
1300 VISITORS AT BEDSIDE STARTED CARDIZEM GTT AT 5 MG/HR
[2018-08-29 14:09] LABS: FUNGUS STAIN Final report (())
--- NOTE | 2018-08-29 21:03 | NUR ---
Received patient resting in bed with eyes closed, assessment completed per flowsheet. Patient disoriented to time/place/situation, slow to respond with some slurring noted. Patient refuses to respond at time, difficult to assess. S1/S2 noted Controlled Afib on telemetry with HR 94. Breathing is shallow on 2L via NC with O2 sat 93%, crackles noted bilateral upper and mid with diminished lower. Abdomen is round/soft with bowel sounds active x4, non-tender. Payan secured, yellow urine noted. Weakness/generalized swelling noted all with all pulses palpable, cap refill < 3 sec with skin warm/dry. unable to assess pain, patient refuses to respond. Repositioned for comfort, see flowsheet for details. All VSS and will continue to monitor.
--- NOTE | 2018-08-29 23:10 | NUR ---
Reassessment completed per flwosheet, no changes noted from previous assessment. S1/S2 noted Uncontrolled Afib on telemetry with HR 106. Breathing is shallow/unlabored on 2L via NC with O2 sat 98%, crackles noted bilateral upper and mid with diminished lower. All pulses palpable with cap reifll < 3 sec, skin warm/dry. Patient refuses to answer, unable to assess pain. See flowsheet for details, all VSS and will continue to monitor.
[2018-08-30] VITALS (21 sets, daily range): BP systolic 98–186; BP diastolic 48–90
--- NOTE | 2018-08-30 01:00 | NUR ---
Patient incontinent of bowel in bed, cleaned with full bed bed bath/linen change performed. Repositioned for comfort, no further needs at this time and will continue to monitor.
--- NOTE | 2018-08-30 03:20 | NUR ---
Reassessment completed per flowsheet, no changes noted from previous assessment. S1/S2 noted Controlled Afib with HR 86. Breathing is shallow/unlabored on 2L via NC with O2 sat 98%, crackles noted bilateral upper and mid with diminished lower. All pulses palpable with cap refill < 3 sec, skin warm/dry. Denies pain or other needs at this time, see flowsheet for details. All VSS and will continue to monitor.
--- NOTE | 2018-08-30 05:00 | NUR ---
AM labs collected by phlebotomy, R upper arm PICC infusing with no blood return noted. Patient repositioned for comfort, no further needs and will continue to monitor.
[2018-08-30 06:58] LABS: BASOPHILS 0.3 % (0-2); EOSINOPHILS 2.2 % (0-7); IMMATURE GRANULOCYTES 4.5 % (0-5); LYMPHOCYTES 8.7 % (15-50); MCH 29.8 pg (26.0-34.0); MCHC 32.8 g/dL (31.0-37.0); MCV 90.8 fL (80.0-100.0); MEAN PLATELET VOLUME 8.8 fL (7.4-10.4); MONOCYTES 13.3 % (2-11); PLATELET COUNT 320 10x3/uL (130-400); RDW 15.6 % (11.5-14.5)
[2018-08-30 06:59] LABS: ALBUMIN 2.2 g/dL (3.4-5.0); ANION GAP 14.5 mmol/L (8-16); BILIRUBIN - TOTAL 0.46 mg/dL (0.2-1.3); CALCIUM 9.5 mg/dL (8.5-10.1); CARBON DIOXIDE 29.7 mmol/L (21.0-32.0); CREATININE - SERUM 2.2 mg/dL (0.6-1.3); POTASSIUM - SERUM 3.2 mmol/L (3.5-5.1)
--- NOTE | 2018-08-30 07:00 | NUR ---
SHIFT ASSESSMENT COMPLETED. PT CARE ASSUMED. MONITORS ON AND WORKING, VITALS STABLE. PT IN CONTROLLED AFIB, CARDENE DRIP INFUSING. NO SIGNS/SYMPTOMS OF PAIN OR DISCOMFORT NOTED AT THIS TIME. WILL CONTINUE TO OBSERVE.
[2018-08-30 07:17] LABS: HEMATOCRIT 30.5 % (36.0-48.0); RBC 3.36 10x6/uL (4.00-5.40); WBC 8.7 10x3/uL (4.8-10.8)
--- NOTE | 2018-08-30 18:19 | MORECARE ---
CASE MANAGEMENT DISCHARGE SUMMARY PATIENT: ESSENCE DUNHAM BRITANY UNIT: [id number] ADM DATE: 08/24/18 AGE: 72 : [birth year] SEX: F ROOM/BED: D.2304 AUTHOR: ELKE MEDINA PHYSICIAN: REFERRING PHYSICIAN: KELVIN PAEZ DO DATE OF SERVICE: 08/30/18 Discharge Plan Patient Name: ESSENCE DUNHAM [facility] : 1945 Planned Disposition: Nursing Home Facility Anticipated Discharge Date: Discharge Date: Expected LOS: Initial Reviewer: [email or web address] Initial Review Date: 08/30/2018 Generated: 08/30/18 7:19 pm DCPIA - Discharge Planning Initial Assessment Updated by [email or web address]: Yanely Ledezma on 08/30/18 6:13 pm * Is the patient Alert and Oriented? Yes * Preadmission Environment Nursing Home Facility * Facility Name [facility] * List name and contact numbers for known caregivers / representatives who currently or will assist patient after discharge: MARQUISTRI ECHEVERRIA - [phone] * Verbal permission to speak to the caregivers and representatives has been obtained from the patient. Yes * Additional services required to return to the preadmission environment? No * Can the patient safely return to the preadmission environment? Yes * Has this patient been hospitalized within the prior 30 days at any hospital? Yes Patient Name: ESSENCE DUNHAM Page 68730 at 1819 All edits/amendments must be made on the electronic document DICTATION DATE: 08/30/181817 RUG RECEIVING CLERK: DUNG 08/30/181817 RPT#: [id number] DC DATE: STATUS: ADM IN [facility] [address] [place] [address] END OF REPORT
--- NOTE | 2018-08-30 18:27 | MORECARE ---
CASE MANAGEMENT DISCHARGE SUMMARY PATIENT: ESSENCE DUNHAM UNIT: [id number] ADM DATE: 08/24/18 AGE: 72 : 47 SEX: F ROOM/BED: D.2304 AUTHOR: ELKE MEDINA PHYSICIAN: REFERRING PHYSICIAN: KELVIN PAEZ DO DATE OF SERVICE: 08/30/18 Discharge Plan Patient Name: ESSENCE DUNHAM Facility: [facility]:[place] : 1945 Planned Disposition: Alf Facility Anticipated Discharge Date: Discharge Date: Expected LOS: Initial Reviewer: [email or web address] Initial Review Date: 08/30/2018 Generated: 08/30/18 7:26 pm Comments DCP- Discharge Planning Updated by [email or web address]: Yanely Ledezma on 08/30/18 5:[address] Patient Name: ESSENCE DUNHAM Admission Status: ER Accout number: [id number] Admission Date: 08-24-2018 : 1945 Admission Diagnosis:PNEUMONIA, UNSPECIFIED ORGANISM Attending: KELVIN PAEZ Current LOS: 6 Anticipated DC Date: Planned Disposition: Alf Facility Primary Insurance: MEDICARE A & B Discharge Planning Comments: CM met patient at bedside. Patient is slow to responded to CM questions but does answer appropriately. Patient was in [facility] for rehab prior to admission. Plans on returning for Rehab upon discharge. CM spoke with [facility] to if they are planning on patient returning to their facility upon discharge. They are planning on accepting patient back to their facility as long as they can meet her needs. CM will continue to follow and assist with discharge planning / needs. Advertising Account Manager: Yanely Ledezma DCPIA - Discharge Planning Initial Assessment Updated by [email or web address]: Yanely Ledezma on 08/30/18 6:13 pm * Is the patient Alert and Oriented? Yes * Preadmission Environment Alf Facility * Facility Name [facility] * List name and contact numbers for known caregivers / representatives who currently or will assist patient after discharge: MARQUIS ECHEVERRIA - [phone] * Verbal permission to speak to the caregivers and representatives has been obtained from the patient. Yes * Additional services required to return to the preadmission environment? No * Can the patient safely return to the preadmission environment? Yes * Has this patient been hospitalized within the prior 30 days at any hospital? Yes Last DP export: 08/30/18 5:19 p Patient Name: ESSENCE DUNHAM Page 60625 at 1827 All edits/amendments must be made on the electronic document DICTATION DATE: 08/30/181825 COMPREHENSIVE ADVISOR: DUNG 08/30/181825 RPT#: [id number] DC DATE: STATUS: ADM IN [facility] [address] [place] [address] END OF REPORT
--- NOTE | 2018-08-30 19:30 | NUR ---
TRANSFERRED FROM ICU. PATIENT IS ALERT AND COMFUSED AT TIMES. RESPIRATIONS ARE EVEN AND UNLABORED. NO S/S OF DISTRESS. NO C/O PAIN. DENIES NEEDS. CALL LIGHT WITHIN REACH. WILL CPOC.
--- NOTE | 2018-08-30 20:12 | NUR ---
OT NOTE: PT COMPLETED SIMPLE GROOMING TASK WITH KO Alonzo. 345/353 THANK YOU, MARCIE MACIEL
[2018-08-31 04:52] LABS: BASOPHILS 0.3 % (0-2); EOSINOPHILS 1.9 % (0-7); HEMATOCRIT 29.4 % (36.0-48.0); HEMOGLOBIN 9.6 g/dL (12-16); LYMPHOCYTES 12.5 % (15-50); MCH 29.4 pg (26.0-34.0); MCHC 32.7 g/dL (31.0-37.0); MCV 90.2 fL (80.0-100.0); MEAN PLATELET VOLUME 8.4 fL (7.4-10.4); MONOCYTES 12.9 % (2-11); NEUTROPHILS 68.4 % (40-80); PLATELET COUNT 261 10x3/uL (130-400); RBC 3.26 10x6/uL (4.00-5.40); RDW 15.2 % (11.5-14.5); WBC 8.8 10x3/uL (4.8-10.8)
[2018-08-31 05:06] LABS: ALBUMIN 2.1 g/dL (3.4-5.0); ANION GAP 12.5 mmol/L (8-16); BILIRUBIN - TOTAL 0.43 mg/dL (0.2-1.3); CALCIUM 9.6 mg/dL (8.5-10.1); CARBON DIOXIDE 27.7 mmol/L (21.0-32.0); CREATININE - SERUM 1.9 mg/dL (0.6-1.3); POTASSIUM - SERUM 3.2 mmol/L (3.5-5.1); PROTEIN - SERUM 6.7 g/dL (6.4-8.2)
[2018-08-31 06:16] VITALS: BP 160/70
[2018-08-31 08:24] VITALS: BP 145/76
--- NOTE | 2018-08-31 08:38 | MORECARE ---
CASE MANAGEMENT DISCHARGE SUMMARY PATIENT: ESSENCE DUNHAM UNIT: [id number] ADM DATE: 08/24/18 AGE: 72 : [birth year] SEX: F ROOM/BED: D.6903 AUTHOR: ELKE MEDINA PHYSICIAN: REFERRING PHYSICIAN: KELVIN PAEZ DO DATE OF SERVICE: 08/31/18 Discharge Plan Patient Name: ESSENCE DUNHAM Facility: [facility]:[place] : 1945 Planned Disposition: [facility] Facility Anticipated Discharge Date: Discharge Date: Expected LOS: Initial Reviewer: [email or web address] Initial Review Date: 08/30/2018 Generated: 08/31/18 9:38 am Comments DCP- Discharge Planning Updated by [email or web address]: Yanely Ledezma on 08/30/18 5:[address] Patient Name: ESSENCE DUNHAM Admission Status: ER Accout number: [id number] Admission Date: 08-24-2018 : 1945 Admission Diagnosis:PNEUMONIA, UNSPECIFIED ORGANISM Attending: KELVIN PAEZ Current LOS: 6 Anticipated DC Date: Planned Disposition: [facility] Facility Primary Insurance: MEDICARE A & B Discharge Planning Comments: CM met patient at bedside. Patient is slow to responded to CM questions but does answer appropriately. Patient was in [facility] for rehab prior to admission. Plans on returning for Rehab upon discharge. CM spoke with [facility] to if they are planning on patient returning to their facility upon discharge. They are planning on accepting patient back to their facility as long as they can meet her needs. CM will continue to follow and assist with discharge planning / needs. Traveling Buyer: Yanely Ledezma DCPIA - Discharge Planning Initial Assessment Updated by [email or web address]: Yanely Ledezma on 08/30/18 6:13 pm * Is the patient Alert and Oriented? Yes * Preadmission Environment [facility] Facility * Facility Name [facility] * List name and contact numbers for known caregivers / representatives who currently or will assist patient after discharge: MARQUIS ECHEVERRIA - [phone] * Verbal permission to speak to the caregivers and representatives has been obtained from the patient. Yes * Additional services required to return to the preadmission environment? No * Can the patient safely return to the preadmission environment? Yes * Has this patient been hospitalized within the prior 30 days at any hospital? Yes Last DP export: 08/30/18 5:26 p Patient Name: ESSENCE DUNHAM Page 13178 at 0838 All edits/amendments must be made on the electronic document DICTATION DATE: 08/31/18836 ZIPPER JOINER: DUNG 08/31/18836 RPT#: [id number] DC DATE: STATUS: ADM IN [facility] [address] [place] [address] END OF REPORT
[2018-08-31 11:36] VITALS: BP 132/64
[2018-08-31 15:23] VITALS: BP 165/77
--- NOTE | 2018-08-31 15:31 | NUR ---
OT NOTE: PERFORMED BED MOB WITH MAX ASSIST; CONT TO LEAN TO SIDE; GROOMING TASKS INCLUDING WASHING FACE WITH CLOTH WITH SET UP; BRUSHING HAIR WITH MIN ASSIST; VERY CONFUSED AND DISORIENTED. COMMAND FOLLOWNG TASKS. RADHA TIRADO OTR/L
--- NOTE | 2018-08-31 16:32 | NUR ---
WOUND CARE NURSE AT ASSESING WOUNDS TO FEET AND LOWER BACK. WILL CONT. PLAN OF CARE.
--- NOTE | 2018-08-31 16:41 | NUR ---
Pt admitted to ICU on 08/24/18 from [facility]. On 08/30 she was transferred to . She has several skin issues. Right medial great toe has a 1x1 scab which easily washed off with her bed bath. The skin under the scab is pink and mostly healed. Left medial great toe had a 1x1cm scab that easily washed off. [place] skin is noted. Lower spine has 2 open necrotic wounds. #1 measures 4cm x 2.5cm x 1.2cm. Depth was obtained on edge of wound where necrotic/zamora/brown tissue has loosened. #2 just below upper wound measures 4cm x 3cm x 1.5cm. Depth of this wound was also measured from loosened escar. Perineal area is red and excoriated. Pt is incontinent of bowels and bladder. f/c is in place.
--- NOTE | 2018-08-31 17:00 | NUR ---
OT NOTE: PT COMPLETED GROOMING TASKS IN BED WITH SET UP. MARCIE MACIEL
--- NOTE | 2018-08-31 19:34 | NUR ---
RESUMING PATIENT CARE. PATIENT IS ALERT AND PLEASANTLY CONFUSED. RESPIRATIONS ARE EVEN AND UNLABORED. NO S/S OF DISTRESS. NO C/O PAIN. DENIES NEEDS AT THIS TIME. CALL LIGHT WITHIN REACH. WILL CPOC.
[2018-08-31 20:00] VITALS: BP 136/56
--- NOTE | 2018-08-31 22:46 | NUR ---
WHILE DOING SHIFT ASSESSMENT. ROLLED PATIENT TO SIDE. PATIENT BLEED THROUGH THE DRESSING ON LOWER BACK. ASSESSED OPEN AREA. CLEANED AND REDRESSED. WILL Q2 HR.
[2018-09-01] VITALS: BP 156/76
[2018-09-01 04:00] VITALS: BP 164/77
[2018-09-01 04:55] LABS: BASOPHILS 0.4 % (0-2); EOSINOPHILS 1.9 % (0-7); HEMATOCRIT 28.7 % (36.0-48.0); HEMOGLOBIN 9.5 g/dL (12-16); IMMATURE GRANULOCYTES 3.4 % (0-5); LYMPHOCYTES 16.7 % (15-50); MCH 29.7 pg (26.0-34.0); MCHC 33.1 g/dL (31.0-37.0); MCV 89.7 fL (80.0-100.0); MEAN PLATELET VOLUME 8.2 fL (7.4-10.4); MONOCYTES 11.2 % (2-11); NEUTROPHILS 66.4 % (40-80); PLATELET COUNT 242 10x3/uL (130-400); RDW 15.1 % (11.5-14.5); WBC 7.9 10x3/uL (4.8-10.8)
[2018-09-01 05:17] LABS: ALBUMIN 2.1 g/dL (3.4-5.0); BILIRUBIN - TOTAL 0.36 mg/dL (0.2-1.3); CALCIUM 9.7 mg/dL (8.5-10.1); CARBON DIOXIDE 29.5 mmol/L (21.0-32.0); CREATININE - SERUM 1.6 mg/dL (0.6-1.3); PROTEIN - SERUM 6.4 g/dL (6.4-8.2)
[2018-09-01 05:22] LABS: ANION GAP 9.6 mmol/L (8-16); POTASSIUM - SERUM 3.1 mmol/L (3.5-5.1)
--- NOTE | 2018-09-01 06:14 | NUR ---
ELECTROLYTE PROTOCOL FOLLOWED. POTASSIUM LOW. 3.1 TREATED WITH POTASSIUM RIDER 20 MEQ BAG INFUSING AT 50 ML PER HOUR. 10 MEQ PER HOUR ORDERED THROUGH PT RIGHT UPPER ARM PICC. PT VERBALIZED UNDERSTANDING.
--- NOTE | 2018-09-01 06:16 | NUR ---
DAILY WEIGHT: UNABLE TO OBTAIN DUE PATIENT NOT ABLE TO STAND ON SCALE. ALSO, NO BEDSCALE
[2018-09-01 08:00] VITALS: BP 112/59
--- NOTE | 2018-09-01 10:19 | NUR ---
Nutrition Follow Up: s/p speech eval Pureed diet ordered with feeding assist Pt did not eat breakfast-GRADES 1 6 TUTOR reports pt did not want breakfast Nursing to try to encouraged and assist intake at lunch Will add Justin-spoke with nursing about giving meds with Ensure Will monitor and follow up
[2018-09-01 12:11] VITALS: BP 120/62
--- NOTE | 2018-09-01 12:11 | NUR ---
OT NOTE: PT VERY LETHARGIC TODAY. PT DIFFICULT TO AROUSE. ATTEMPTED TO HAVE PT EAT PUDDING, SHE DID NOT WANT ANY BREAKFAST..ATTEMPTED GROOMING TASKS BUT WITH DIFFICULTY DUE TO LETHARGY. MIN ASSIST WITH WASHING FACE AND MOD ASSIST WITH BRUSHING HAIR. REMAINS CONFUSED AND SLOW TO RESPOND.. PT THOUGHT SHE WAS IN [place]..UNABLE TO RECALL FAMILY MEMBERS NAMES AT THIS TIME. RADHA TIRADO, OTR/L
--- NOTE | 2018-09-01 14:44 | MORECARE ---
CASE MANAGEMENT DISCHARGE SUMMARY PATIENT: ESSENCE DUNHAM UNIT: [id number] ADM DATE: 08/24/18 AGE: 72 : [birth year] SEX: F ROOM/BED: D.0656 AUTHOR: ELKE MEDINA PHYSICIAN: REFERRING PHYSICIAN: KELVIN PAEZ DO DATE OF SERVICE: 09/01/18 Discharge Plan Patient Name: ESSENCE DUNHAM Facility: [facility]:[place] : 1945 Planned Disposition: Nursing Home Facility Anticipated Discharge Date: Discharge Date: Expected LOS: Initial Reviewer: [email or web address] Initial Review Date: 08/30/2018 Generated: 09/01/18 3:44 pm DCP- Discharge Planning Updated by [email or web address]: Yanely Ledezma on 08/30/18 5:[address] Patient Name: ESSENCE DUNHAM Admission Status: ER Accout number: [id number] Admission Date: 08-24-2018 : 1945 Admission Diagnosis:PNEUMONIA, UNSPECIFIED ORGANISM Attending: KELVIN PAEZ Current LOS: 6 Anticipated DC Date: Planned Disposition: Nursing Home Facility Primary Insurance: MEDICARE A & B Discharge Planning Comments: CM met patient at bedside. Patient is slow to responded to CM questions but does answer appropriately. Patient was in [facility] for rehab prior to admission. Plans on returning for Rehab upon discharge. CM spoke with [facility] ([place], [place]) to if they are planning on patient returning to their facility upon discharge. They are planning on accepting patient back to their facility as long as they can meet her needs. CM will continue to follow and assist with discharge planning / needs. Drafter Chief Design: Yanely Ledezma DCPIA - Discharge Planning Initial Assessment Updated by [email or web address]: Yanely Ledezma on 08/30/18 6:13 pm * Is the patient Alert and Oriented? Yes * Preadmission Environment Nursing Home Facility * Facility Name [facility] * List name and contact numbers for known caregivers / representatives who currently or will assist patient after discharge: MARQUIS ECHEVERRIA - [phone] * Verbal permission to speak to the caregivers and representatives has been obtained from the patient. Yes * Additional services required to return to the preadmission environment? No * Can the patient safely return to the preadmission environment? Yes * Has this patient been hospitalized within the prior 30 days at any hospital? Yes External Providers External Provider: [facility] Next Contact Date: Service Request Date: Service Type: Resolution: Reviewer: Comments: Last DP export: 08/31/18 7:38 a Patient Name: ESSENCE DUNHAM Page 93904 at 1444 All edits/amendments must be made on the electronic document DICTATION DATE: 09/01/18 144 EMERGENCY DETAIL DRIVER: DUNG 09/01/18 1444 RPT#: [id number] DC DATE: STATUS: ADM IN [facility] [address] [place] [address] END OF REPORT
--- NOTE | 2018-09-01 15:47 | NUR ---
OT NOTE: PT COMPLETED SIMPLE HYGIENE AND GROOMING TASK WITH MAX/TOTAL A. THANK YOU, MARCIE CLARK
[2018-09-01 16:00] VITALS: BP 123/54
--- NOTE | 2018-09-01 19:30 | NUR ---
RESUMING PATIENT CARE. PATIENT IS ALERT AND PLEASANTLY CONFUSED. RESTING COMFORTABLY IN BED. RESPIRATIONS ARE EVEN AND UNLABORED. NO S/S OF DISTRESS. NO C/O PAIN. CALL LIGHT WITHIN REACH. WILL CPOC.
[2018-09-01 22:57] VITALS: BP 136/92
[2018-09-02] VITALS: BP 126/78
--- NOTE | 2018-09-02 00:59 | NUR ---
DRESSING CHANGE: DRESSING CHANGED AND WOUND CARE PROVIDED.
--- NOTE | 2018-09-02 02:07 | NUR ---
WOUND CARE: DRESSING CHANGED AND WOUND CARE PROVIDED.
[2018-09-02 06:11] LABS: ANION GAP 10.5 mmol/L (8-16); CALCIUM 9.3 mg/dL (8.5-10.1); CREATININE - SERUM 1.7 mg/dL (0.6-1.3); POTASSIUM - SERUM 3.5 mmol/L (3.5-5.1)
--- NOTE | 2018-09-02 06:23 | NUR ---
DAILY WEIGHT: UNABLE TO OBTAIN DUE TO NO BEDSCALE AND PATIENT UNABLE TO SAFELY STAND ON STANDING SCALE. WILL RELY TO DAY [facility] SEE IF POSSIBLE PT CAN GET WEIGHT.
[2018-09-02 06:37] VITALS: BP 113/54
[2018-09-02 07:25] LABS: BASOPHILS 0.4 % (0-2); EOSINOPHILS 1.7 % (0-7); HEMATOCRIT 28.6 % (36.0-48.0); HEMOGLOBIN 9.5 g/dL (12-16); IMMATURE GRANULOCYTES 2.4 % (0-5); LYMPHOCYTES 15.3 % (15-50); MCH 29.9 pg (26.0-34.0); MCHC 33.2 g/dL (31.0-37.0); MCV 89.9 fL (80.0-100.0); MEAN PLATELET VOLUME 8.4 fL (7.4-10.4); MONOCYTES 12.9 % (2-11); NEUTROPHILS 67.3 % (40-80); PLATELET COUNT 230 10x3/uL (130-400); RBC 3.18 10x6/uL (4.00-5.40); WBC 8.9 10x3/uL (4.8-10.8)
--- NOTE | 2018-09-02 07:30 | NUR ---
RECIEVED PT IN BED EYES CLOSED RESP UNLABORED SKIN W/D NAD NOTED
[2018-09-02 08:22] VITALS: BP 142/73
[2018-09-02 12:12] VITALS: BP 143/66
--- NOTE | 2018-09-02 12:22 | MORECARE ---
CASE MANAGEMENT DISCHARGE SUMMARY PATIENT: ESSENCE DUNHAM UNIT: [id number] ADM DATE: 08/24/18 AGE: 72 : [birth year] SEX: F ROOM/BED: D.5126 AUTHOR: ELKE MEDINA PHYSICIAN: REFERRING PHYSICIAN: KELVIN PAEZ DO DATE OF SERVICE: 09/02/18 Discharge Plan Patient Name: ESSENCE DUNHAM Facility: [facility]:[place] : 1945 Planned Disposition: [facility] Facility Anticipated Discharge Date: Discharge Date: Expected LOS: Initial Reviewer: [email or web address] Initial Review Date: 08/30/2018 Generated: 09/02/18 1:22 pm Comments DCP- Discharge Planning Updated by [email or web address]: Cortez Wilcox on 09/02/18 11:[address] Patient Name: ESSENCE DUNHAM Encounter No: [id number] : 1945 Primary Insurance: MEDICARE A & B Anticipated DC Date: Planned Disposition: [facility] Facility External Planned Provider: [facility] REHAB BED DCP follow-up note: CM FAXED HOSPITAL UPDATE TO [facility] [phone]. FOR DISCHARGE, FAX DISCHARGE INFORMATION TO [facility], . NURSE REPORT TO BE CALLED TO [facility] AT [phone]. [facility] TO ARRANGE VAN TRANSPORTATION IF PT IS ABLE TO SIT SAFELY FOR DURATION OF TRANSPORT TO FACILITY. ISRAEL BRIDGES DCP- Discharge Planning Updated by [email or web address]: Yanely Ledezma on 08/30/18 5:[address] Patient Name: ESSENCE DUNHAM Admission Status: ER Accout number: [id number] Admission Date: 08-24-2018 : 1945 Admission Diagnosis:PNEUMONIA, UNSPECIFIED ORGANISM Attending: KELVIN PAEZ Current LOS: 6 Anticipated DC Date: Planned Disposition: [facility] Facility Primary Insurance: MEDICARE A & B Discharge Planning Comments: CM met patient at bedside. Patient is slow to responded to CM questions but does answer appropriately. Patient was in [facility] for rehab prior to admission. Plans on returning for Rehab upon discharge. CM spoke with [facility] to if they are planning on patient returning to their facility upon discharge. They are planning on accepting patient back to their facility as long as they can meet her needs. CM will continue to follow and assist with discharge planning / needs. Mill Feeder: Yanely CALDERON - Discharge Planning Initial Assessment Updated by [email or web address]: Yanely Ledezma on 08/30/18 6:13 pm * Is the patient Alert and Oriented? Yes * Preadmission Environment [facility] Facility * Facility Name [facility] * List name and contact numbers for known caregivers / representatives who currently or will assist patient after discharge: MARQUIS ECHEVERRIA - [phone] * Verbal permission to speak to the caregivers and representatives has been obtained from the patient. Yes * Additional services required to return to the preadmission environment? No * Can the patient safely return to the preadmission environment? Yes * Has this patient been hospitalized within the prior 30 days at any hospital? Yes Last DP export: 09/01/18 1:44 p Patient Name: ESSENCE DUNHAM Page 14518 at 1222 All edits/amendments must be made on the electronic document DICTATION DATE: 09/02/18 1222 MEDICAL RECORDS RECEPTIONIST: DUNG 09/02/18 1222 RPT#: [id number] SD DATE: STATUS: ADM IN [facility] [address] [place] [address] END OF REPORT
[2018-09-02 13:13] LABS: FUNGUS MYCOLOGY CULTURE Preliminary report (())
[2018-09-02 14:11] LABS: FUNGUS CULTURE RESULT 1 Candida albicans (())
--- NOTE | 2018-09-02 14:22 | NUR ---
OT NOTE: PT REMAINS CONFUSED.. ATTEMPTED NUMEROUS TIMES TO GET PT TO TRY AND FEED HERSEL..CONT TO REFUSE FOOD, PUDDING, DRINK, ETC.. PROVIDED BRUSH AND SHE WAS ABLE TO BRUSH HER HAIR WITH MOD ASSIST; WASHED FACE AND HANDS WITH CLOTH AND MIN ASSIST; MOD ASSIST WITH BED MOB FOR ROLLING SIDE TO SIDE.(/) RADHA TIRADO, OTR/L
[2018-09-02 16:36] VITALS: BP 139/70
--- NOTE | 2018-09-02 19:41 | NUR ---
RESUMING PATIENT CARE. PATIENT IS ALERT AND PLEASANTLY CONFUSED. RESPIRATIONS ARE EVEN AND UNLABORED. PATIENT REMAINS ON 2L NC. DENIES NEEDS. NO S/S OF DISTRESS. NO C/O PAIN. DAUGHTER AT BEDSIDE, SHE IS GOING TO GET THE PATIENT CPAP FROM HOME AND BRING IT HERE. CALL LIGHT WITHIN REACH. WILL CPOC.
[2018-09-02 20:00] VITALS: BP 148/61
[2018-09-03] VITALS: BP 114/57
[2018-09-03 04:00] VITALS: BP 148/65
--- NOTE | 2018-09-03 05:40 | NUR ---
DAILY WEIGHT: UNABLE TO OBTAIN WEIGHT. PATIENT UNABLE TO SAFELY STAND ON SCALE AND PATIENT BED HAS NO BEDSCALE.
[2018-09-03 05:50] LABS: BASOPHILS 0.3 % (0-2); EOSINOPHILS 1.3 % (0-7); HEMATOCRIT 27.5 % (36.0-48.0); HEMOGLOBIN 9.2 g/dL (12-16); LYMPHOCYTES 16.4 % (15-50); MCH 29.9 pg (26.0-34.0); MCHC 33.5 g/dL (31.0-37.0); MCV 89.3 fL (80.0-100.0); MEAN PLATELET VOLUME 8.3 fL (7.4-10.4); RBC 3.08 10x6/uL (4.00-5.40); RDW 15.2 % (11.5-14.5); WBC 7.6 10x3/uL (4.8-10.8)
[2018-09-03 05:55] LABS: PLATELET COUNT 172 10x3/uL (130-400)
[2018-09-03 06:12] LABS: ANION GAP 14.2 mmol/L (8-16); CALCIUM 9.1 mg/dL (8.5-10.1); CARBON DIOXIDE 24.4 mmol/L (21.0-32.0); CREATININE - SERUM 1.5 mg/dL (0.6-1.3); POTASSIUM - SERUM 3.6 mmol/L (3.5-5.1)
[2018-09-03 12:30] VITALS: BP 132/71
--- NOTE | 2018-09-03 19:58 | NUR ---
INITIAL ROUNDS AND ASSESSMENT COMPLETED. PT RESTING WITH EYES CLOSED. CAMEOJ PATENT TO BEDSIDE DRAIN BAG. RIGHT PICC WITH NS @ KVO. SEE ASSESSMENT. MONITOR AND CPOC.
[2018-09-03 20:00] VITALS: BP 134/72
[2018-09-04] VITALS: BP 127/67
[2018-09-04 04:00] VITALS: BP 144/70
--- NOTE | 2018-09-04 04:54 | NUR ---
72 CAF PER TELEMETRY. PT RESTING WITH NO DISTRESS. NS @ KVO INFUSING TO RIGHT ARM PICC. AM LABS COLLECTED AT THIS TIME.
[2018-09-04 07:23] LABS: HEMATOCRIT 26.7 % (36.0-48.0); HEMOGLOBIN 8.7 g/dL (12-16); MCH 29.4 pg (26.0-34.0); MCHC 32.6 g/dL (31.0-37.0); MCV 90.2 fL (80.0-100.0); MEAN PLATELET VOLUME 8.5 fL (7.4-10.4); PLATELET COUNT 145 10x3/uL (130-400); RBC 2.96 10x6/uL (4.00-5.40); RDW 15.2 % (11.5-14.5); WBC 8.5 10x3/uL (4.8-10.8)
[2018-09-04 08:09] LABS: BASOPHILS 1 % (0-2); EOSINOPHILS 3 % (0-7); LYMPHOCYTES 22 % (15-50); MONOCYTES 11 % (2-11); NEUTROPHILS 63 % (40-80); PLATELET ESTIMATE NORMAL
[2018-09-04 08:11] VITALS: BP 123/54
[2018-09-04 08:38] LABS: ANION GAP 10.6 mmol/L (8-16); CALCIUM 9.3 mg/dL (8.5-10.1); CARBON DIOXIDE 28.1 mmol/L (21.0-32.0); CREATININE - SERUM 1.4 mg/dL (0.6-1.3); POTASSIUM - SERUM 3.7 mmol/L (3.5-5.1)
--- NOTE | 2018-09-04 10:44 | NUR ---
DRSG CHANGED TO DECUBE ON BACK PER ORDERS.
[2018-09-04 12:17] VITALS: BP 126/57
--- NOTE | 2018-09-04 14:11 | NUR ---
OT NOTE: PT WAS ALERT AND LIEING IN BED. STATED THAT HER KNEE WAS HURTING, IT WAS AGAINST RAILING. ATTEMPTED BED MOB REQUIRING MAX ASSIST. ATTEMPTED FEEDING BUT PT DID NOT WANT ANY MORE(ONLY CONSUMED A FEW BITES), HOWEVER, WAS ABLE TO HOLD HER CUP AND DRINK TODAY. REPOSITIONED PT ON HER SIDE WITH WEDGES. RADHA TIRADO, OTR/L
[2018-09-04 15:25] VITALS: BP 133/62
--- NOTE | 2018-09-04 16:24 | NUR ---
Rehab Prescreening Consult recieved and the chart has been reviewed. Notes indicate she is confused and disoriented and a [place] resident. PT saw her on 08/30/18 and signed off. OT indicated she was appropriate for a SNF. She does not appear to be appropriate for an acute rehab unit currently. Kinsey Castro RN Clinical Liaison, Rehab
[2018-09-04 19:55] VITALS: BP 116/49
--- NOTE | 2018-09-04 20:00 | NUR ---
INITIAL ROUNDS AND ASSESSMENT COMPLETED. PT RESTING IN BED WITH NO DISTRESS. O2 @ 2L/NC. 80/CAF PER TELEMETRY. CAMEJO PATENT TO BEDSIDE DRAIN BAG. RIGHT UPPER ARM PICC SALINE LOCKED. DRESSING TO MID BACK WOUND C/D/I AND HAS SCABBED AREAS TO MULTIPLE TOES/BOTH FEET. MONITOR AND CPOC.
--- NOTE | 2018-09-05 02:32 | NUR ---
RESTING IN BED WITH EYES CLOSED. RESPS EVEN/NONLABORED. NO DISTRESS. CAMEJO PATENT TO BEDSIDE DRAIN BAG WITH DARK YELLOW URINE. CAF/74 PER TELEMETRY. CALL LIGHT IN REACH. MONITOR AND CPOC.
[2018-09-05 03:25] VITALS: BP 110/72
--- NOTE | 2018-09-05 06:30 | NUR ---
RECEIVED PT IN BED EYES CLOSED RESP UNLABORED SKIN W/D NAD NOTED
[2018-09-05 06:35] LABS: BASOPHILS 0.3 % (0-2); EOSINOPHILS 1.6 % (0-7); HEMATOCRIT 27.3 % (36.0-48.0); HEMOGLOBIN 9.1 g/dL (12-16); LYMPHOCYTES 15.2 % (15-50); MCH 29.5 pg (26.0-34.0); MCHC 33.3 g/dL (31.0-37.0); MCV 88.6 fL (80.0-100.0); MEAN PLATELET VOLUME 8.3 fL (7.4-10.4); MONOCYTES 10.7 % (2-11); NEUTROPHILS 70.2 % (40-80); PLATELET COUNT 132 10x3/uL (130-400); RBC 3.08 10x6/uL (4.00-5.40); RDW 14.9 % (11.5-14.5)
[2018-09-05 06:50] LABS: ANION GAP 11.9 mmol/L (8-16); C-REACTIVE PROTEIN 3.2 mg/dL (0.0-0.9); CALCIUM 9.3 mg/dL (8.5-10.1); CARBON DIOXIDE 26.6 mmol/L (21.0-32.0); CREATININE - SERUM 1.3 mg/dL (0.6-1.3); POTASSIUM - SERUM 3.5 mmol/L (3.5-5.1)
[2018-09-05 07:29] LABS: ERYTHROCYTE SEDIMENTATION RATE 28 mm/hr (0-30)
[2018-09-05 08:05] VITALS: BP 140/78
--- NOTE | 2018-09-05 10:01 | MORECARE ---
CASE MANAGEMENT DISCHARGE SUMMARY PATIENT: ESSENCE DUNHAM UNIT: [id number] ADM DATE: 08/24/18 AGE: 72 : [birth year] SEX: F ROOM/BED: D.1246 AUTHOR: ELKE MEDINA PHYSICIAN: REFERRING PHYSICIAN: KELVIN PAEZ DO DATE OF SERVICE: 09/05/18 Discharge Plan Patient Name: ESSENCE DUNHAM Facility: [facility]:[place] : 1945 Planned Disposition: Snf Facility Anticipated Discharge Date: Discharge Date: Expected LOS: Initial Reviewer: [id number] Initial Review Date: 08/30/2018 Generated: 09/05/18 11:00 am Comments DCP- Discharge Planning Updated by [email or web address]: Cortez Rosa on 09/05/18 8:[address] Patient Name: ESSENCE DUNHAM Encounter No: [id number] : 1945 Primary Insurance: MEDICARE A & B Anticipated DC Date: Planned Disposition: Snf Facility External Planned Provider: [facility], MEDICARE REHAB BED DCP follow-up note: CM RECEIVED INPATIENT RESCREENING ORDER, REVIEWED CHART, PT HAS BEEN DECLINED BY INPATIENT REHAB. PT HAS PENITENTIARY FACILITY BED HOLDING AT [facility]. CM FAXED HOSPITAL UPDATE TO [facility] [phone]. [facility], , OF POSSIBLE DISCHARGE AND UPDATE BEING FAXED. FOR DISCHARGE, FAX DISCHARGE INFORMATION TO [facility], . NURSE REPORT TO BE CALLED TO [facility] AT [phone]. [facility] TO ARRANGE VAN TRANSPORTATION IF PT IS ABLE TO SIT SAFELY FOR DURATION OF TRANSPORT TO FACILITY. CORTEZ ROSA CASE ALE DCP- Discharge Planning Updated by [id number]: Cortez Rosa on 09/02/18 11:[address] Patient Name: ESSENCE DUNHAM Encounter No: [id number] : 1945 Primary Insurance: MEDICARE A & B Anticipated DC Date: Planned Disposition: Snf Facility External Planned Provider: [facility], MEDICARE REHAB BED DCP follow-up note: CM FAXED HOSPITAL UPDATE TO [facility] [phone]. FOR DISCHARGE, FAX DISCHARGE INFORMATION TO [facility] AND REHAB, . NURSE REPORT TO BE CALLED TO [facility] AT [phone]. [facility] TO ARRANGE VAN TRANSPORTATION IF PT IS ABLE TO SIT SAFELY FOR DURATION OF TRANSPORT TO FACILITY. CORTEZ ROSA, CASE MANAGEMENT DCP- Discharge Planning Updated by [id number]: Yanely Ledezma on 08/30/18 5:[address] Patient Name: ESSENCE DUNHAM Admission Status: ER Accout number: [id number] Admission Date: 08-24-2018 : 1945 Admission Diagnosis:PNEUMONIA, UNSPECIFIED ORGANISM Attending: KELVIN PAEZ Current LOS: 6 Anticipated DC Date: Planned Disposition: Snf Facility Primary Insurance: MEDICARE A & B Discharge Planning Comments: CM met patient at bedside. Patient is slow to responded to CM questions but does answer appropriately. Patient was in [facility] for rehab prior to admission. Plans on returning for Rehab upon discharge. CM spoke with [facility] to if they are planning on patient returning to their facility upon discharge. They are planning on accepting patient back to their facility as long as they can meet her needs. CM will continue to follow and assist with discharge planning / needs. Survey Associate: Yanely Ledezma DCPIA - Discharge Planning Initial Assessment Updated by [id number]: Yanely Ledezma on 08/30/18 6:13 pm * Is the patient Alert and Oriented? Yes * Preadmission Environment Snf Facility * Facility Name [facility] * List name and contact numbers for known caregivers / representatives who currently or will assist patient after discharge: MARQUIS ECHEVERRIA - [phone] * Verbal permission to speak to the caregivers and representatives has been obtained from the patient. Yes * Additional services required to return to the preadmission environment? No * Can the patient safely return to the preadmission environment? Yes * Has this patient been hospitalized within the prior 30 days at any hospital? Yes Last DP export: 09/02/18 11:22 a Patient Name: ESSENCE DUNHAM Page 05731 at 1001 All edits/amendments must be made on the electronic document DICTATION DATE: 09/05/18999 HOME CARE SCHEDULER: DUNG 09/05/18999 RPT#: [id number] DC DATE: STATUS: ADM IN [facility] [address] [place] [address] END OF REPORT
[2018-09-05 12:00] VITALS: BP 119/64
[2018-09-05 14:56] VITALS: BP 158/77
[2018-09-05] MEDS ORDERED: LANOXIN125 MCG PO (15:35)
[2018-09-05] MEDS ORDERED: ATROVENT 0.02%2.5 ML UPD (15:38)
[2018-09-05] MEDS ORDERED: Xopenex 0.63 MG INH UPD (15:38)
[2018-09-05] MEDS ORDERED: CUBICIN500 MG IV (16:03)
--- NOTE | 2018-09-05 16:19 | MORECARE ---
CASE MANAGEMENT DISCHARGE SUMMARY PATIENT: ESSENCE DUNHAM UNIT: [id number] ADM DATE: 08/24/18 AGE: 72 : 47 SEX: F ROOM/BED: D.9376 AUTHOR: ELKE MEDINA PHYSICIAN: REFERRING PHYSICIAN: KELVIN PAEZ DO DATE OF SERVICE: 09/05/18 Discharge Plan Patient Name: ESSENCE DUNHAM Facility: [facility]:[place] : 1945 Planned Disposition: Nursing Home Facility Anticipated Discharge Date: 09/05/18 Discharge Date: Expected LOS: 12 Initial Reviewer: [id number] Initial Review Date: 08/30/2018 Generated: 09/05/18 5:19 pm Comments DCP- Discharge Planning Updated by [email or web address]: Cortez Rosa on 09/05/18 8:[address] Patient Name: ESSENCE DUNHAM Encounter No: [id number] : 1945 Primary Insurance: MEDICARE A & B Anticipated DC Date: Planned Disposition: Nursing Home Facility External Planned Provider: [facility], MEDICARE REHAB BED DCP follow-up note: CM RECEIVED INPATIENT RESCREENING ORDER, REVIEWED CHART, PT HAS BEEN DECLINED BY INPATIENT REHAB. PT HAS [facility] FACILITY BED HOLDING AT [facility]. CM FAXED HOSPITAL UPDATE TO [facility] [phone]. CM CALLED AND LEFT [facility] FOR [facility] OF [facility], , OF POSSIBLE DISCHARGE AND UPDATE BEING FAXED. FOR DISCHARGE, FAX DISCHARGE INFORMATION TO [facility], . NURSE REPORT TO BE CALLED TO [facility] AT [phone]. [facility] TO ARRANGE VAN TRANSPORTATION IF PT IS ABLE TO SIT SAFELY FOR DURATION OF TRANSPORT TO FACILITY. ISRAEL BRIDGES DCP- Discharge Planning Updated by [email or web address]: Cortez Rosa on 09/02/18 11:[address] Patient Name: ESSENCE DUNHAM Encounter No: [id number] : 1945 Primary Insurance: MEDICARE A & B Anticipated DC Date: Planned Disposition: Nursing Home Facility External Planned Provider: [facility], MEDICARE REHAB BED DCP follow-up note: CM FAXED HOSPITAL UPDATE TO [facility] [phone]. FOR DISCHARGE, FAX DISCHARGE INFORMATION TO [facility], . NURSE REPORT TO BE CALLED TO [facility] AT [phone]. [facility] TO ARRANGE VAN TRANSPORTATION IF PT IS ABLE TO SIT SAFELY FOR DURATION OF TRANSPORT TO FACILITY. CORTEZ ROSA, CASE MANAGEMENT DCP- Discharge Planning Updated by [id number]: Yanely Ledezma on 08/30/18 5:[address] Patient Name: ESSENCE DUNHAM Admission Status: ER Accout number: [id number] Admission Date: 08-24-2018 : 1945 Admission Diagnosis:PNEUMONIA, UNSPECIFIED ORGANISM Attending: KELVIN PAEZ Current LOS: 6 Anticipated DC Date: Planned Disposition: Nursing Home Facility Primary Insurance: MEDICARE A & B Discharge Planning Comments: CM met patient at bedside. Patient is slow to responded to CM questions but does answer appropriately. Patient was in [facility] for rehab prior to admission. Plans on returning for Rehab upon discharge. CM spoke with [facility] to if they are planning on patient returning to their facility upon discharge. They are planning on accepting patient back to their facility as long as they can meet her needs. CM will continue to follow and assist with discharge planning / needs. Rubber Curer: Yanely Ledezma DCPIA - Discharge Planning Initial Assessment Updated by [email or web address]: Yanely Ledezma on 08/30/18 6:13 pm * Is the patient Alert and Oriented? Yes * Preadmission Environment Nursing Home Facility * Facility Name [facility] * List name and contact numbers for known caregivers / representatives who currently or will assist patient after discharge: MARQUIS ECHEVERRIA - [phone] * Verbal permission to speak to the caregivers and representatives has been obtained from the patient. Yes * Additional services required to return to the preadmission environment? No * Can the patient safely return to the preadmission environment? Yes * Has this patient been hospitalized within the prior 30 days at any hospital? Yes Coverage Notice Reviewer: [id number] - Cortez Rosa Notice Issued Date-Time: 09/05/2018 13:25 Notice Type: IM Discharge Notice Notice Delivered To: Patient Relationship to Patient: Athlete Marketing Agent Name: Delivery Method: HAND - Hand Delivered Yazmin Days: Prior Verbal Notification: Recipient Understood Notice: Yes Recipient Signature: Yes Med Rec Note Co-signed by Attending: Coverage Notice Comment: Last DP export: 09/05/18 9:00 a Patient Name: ESSENCE DUNHAM Page 35733 at 1619 All edits/amendments must be made on the electronic document DICTATION DATE: 09/05/181617 FIELD SUPERVISOR: DUNG 09/05/181617 RPT#: [id number] DC DATE: STATUS: ADM IN [facility] [address] [place] [address] END OF REPORT
--- NOTE | 2018-09-05 16:27 | NUR ---
OT NOTE: PT COMPLETED HYGIENE TASKS WITH MOD A. PT COMPLETED BED MOB TASKS WITH MOD. PT COMPLETED UE AROM AX. THANK YOU, MARCIE MACIEL
--- NOTE | 2018-09-05 16:33 | MORECARE ---
CASE MANAGEMENT DISCHARGE SUMMARY PATIENT: ESSENCE DUNHAM UNIT: [id number] ADM DATE: 08/24/18 AGE: 72 : [birth year] SEX: F ROOM/BED: D.3066 AUTHOR: ELKE MEDINA PHYSICIAN: REFERRING PHYSICIAN: KELVIN PAEZ DO DATE OF SERVICE: 09/05/18 Discharge Plan Patient Name: ESSENCE DUNHAM Facility: [facility]:[place] : 1945 Planned Disposition: Residential Facility Anticipated Discharge Date: 09/05/18 Discharge Date: Expected LOS: 12 Initial Reviewer: [id number] Initial Review Date: 08/30/2018 Generated: 09/05/18 5:33 pm Comments DCP- Discharge Planning Updated by [email or web address]: Cortez Rosa on 09/05/18 8:[address] Patient Name: ESSENCE DUNHAM Encounter No: [id number] : 1945 Primary Insurance: MEDICARE A & B Anticipated DC Date: Planned Disposition: Residential Facility External Planned Provider: [facility], MEDICARE REHAB BED DCP follow-up note: CM RECEIVED INPATIENT RESCREENING ORDER, REVIEWED CHART, PT HAS BEEN DECLINED BY INPATIENT REHAB. PT HAS [facility] FACILITY BED HOLDING AT [facility]. CM FAXED HOSPITAL UPDATE TO [facility] [phone]. CM CALLED AND LEFT [facility] FOR [facility] OF [facility], , OF POSSIBLE DISCHARGE AND UPDATE BEING FAXED. FOR DISCHARGE, FAX DISCHARGE INFORMATION TO [facility], . NURSE REPORT TO BE CALLED TO [facility] AT [phone]. [facility] TO ARRANGE VAN TRANSPORTATION IF PT IS ABLE TO SIT SAFELY FOR DURATION OF TRANSPORT TO FACILITY. ISRAEL BRIDGES DCP- Discharge Planning Updated by [email or web address]: Cortez Rosa on 09/02/18 11:[address] Patient Name: ESSENCE DUNHAM Encounter No: [id number] : 1945 Primary Insurance: MEDICARE A & B Anticipated DC Date: Planned Disposition: Residential Facility External Planned Provider: [facility], MEDICARE REHAB BED DCP follow-up note: CM FAXED HOSPITAL UPDATE TO [facility] [phone]. FOR DISCHARGE, FAX DISCHARGE INFORMATION TO [facility], . NURSE REPORT TO BE CALLED TO [facility] AT [phone]. [facility] TO ARRANGE VAN TRANSPORTATION IF PT IS ABLE TO SIT SAFELY FOR DURATION OF TRANSPORT TO FACILITY. CORTEZ ROSA, CASE MANAGEMENT DCP- Discharge Planning Updated by [id number]: Yanely Ledezma on 08/30/18 5:[address] Patient Name: ESSENCE DUNHAM Admission Status: ER Accout number: [id number] Admission Date: 08-24-2018 : 1945 Admission Diagnosis:PNEUMONIA, UNSPECIFIED ORGANISM Attending: KELVIN PAEZ Current LOS: 6 Anticipated DC Date: Planned Disposition: Residential Facility Primary Insurance: MEDICARE A & B Discharge Planning Comments: CM met patient at bedside. Patient is slow to responded to CM questions but does answer appropriately. Patient was in [facility] for rehab prior to admission. Plans on returning for Rehab upon discharge. CM spoke with [facility] to if they are planning on patient returning to their facility upon discharge. They are planning on accepting patient back to their facility as long as they can meet her needs. CM will continue to follow and assist with discharge planning / needs. Automotive Engineering Technician: Yanely Ledezma DCPIA - Discharge Planning Initial Assessment Updated by [id number]: Yanely Ledezma on 08/30/18 6:13 pm * Is the patient Alert and Oriented? Yes * Preadmission Environment Residential Facility * Facility Name [facility] * List name and contact numbers for known caregivers / representatives who currently or will assist patient after discharge: MARQUIS ECHEVERRIA - [phone] * Verbal permission to speak to the caregivers and representatives has been obtained from the patient. Yes * Additional services required to return to the preadmission environment? No * Can the patient safely return to the preadmission environment? Yes * Has this patient been hospitalized within the prior 30 days at any hospital? Yes Coverage Notice Reviewer: [id number] - Cortez Rosa Notice Issued Date-Time: 09/05/2018 13:25 Notice Type: IM Discharge Notice Notice Delivered To: Patient Relationship to Patient: Traffic Line Painter Name: Delivery Method: HAND - Hand Delivered Yazmin Days: Prior Verbal Notification: Recipient Understood Notice: Yes Recipient Signature: Yes Med Rec Note Co-signed by Attending: Coverage Notice Comment: Last DP export: 09/05/18 3:19 p Patient Name: ESSENCE DUNHAM Page 49542 at 1633 All edits/amendments must be made on the electronic document DICTATION DATE: 09/05/181631 HOME COMFORT ADVISOR: DUNG 09/05/181631 RPT#: [id number] DC DATE: STATUS: ADM IN [facility] [address] [place] [address] END OF REPORT
--- NOTE | 2018-09-05 16:40 | MORECARE ---
CASE MANAGEMENT DISCHARGE SUMMARY PATIENT: ESSENCE DUNHAM UNIT: [id number] ADM DATE: 08/24/18 AGE: 72 : [birth year] SEX: F ROOM/BED: D.2276 AUTHOR: ADAM,DOC PHYSICIAN: REFERRING PHYSICIAN: KELVIN PAEZ DO DATE OF SERVICE: 09/05/18 Discharge Plan Patient Name: ESSENCE DUNHAM Facility: [facility]:[place] : 1945 Planned Disposition: Detention Facility Anticipated Discharge Date: 09/05/18 Discharge Date: Expected LOS: 12 Initial Reviewer: [id number] Initial Review Date: 08/30/2018 Generated: 09/05/18 5:40 pm Comments DCP- Discharge Planning Updated by [id number]: Cortez Rosa on 09/05/18 3:[address] Patient Name: ESSENCE DUNHAM Encounter No: [id number] : 1945 Primary Insurance: MEDICARE A & B Anticipated DC Date: Planned Disposition: Detention Facility External Planned Provider: [facility], MEDICARE REHAB BED DCP follow-up note: CM RECEIVED INPATIENT RESCREENING ORDER, REVIEWED CHART, PT HAS BEEN DECLINED BY INPATIENT REHAB. PT HAS [facility] FACILITY BED HOLDING AT [facility]. CM FAXED HOSPITAL UPDATE TO [facility] [phone]. CM CALLED AND LEFT [facility] FOR [facility] OF [facility], , OF POSSIBLE DISCHARGE AND UPDATE BEING FAXED. FOR DISCHARGE, FAX DISCHARGE INFORMATION TO [facility], . NURSE REPORT TO BE CALLED TO [facility] AT [phone]. [facility] TO ARRANGE VAN TRANSPORTATION IF PT IS ABLE TO SIT SAFELY FOR DURATION OF TRANSPORT TO FACILITY. CORTEZ ROSA, CASE MANAGEMENT Appended by Cortez Rosa on 09/05/2018 16:33 CDT: CM SPOKE TO PT IN ROOM, NOTIFIED OF DISCHARGE, PT IN AGREEMENT WITH RETURN TO [facility], ASKED THAT CM CALL HER FRIEND AND DAUGHTER. CM CALLED AND NOTIFIED MARQUIS ECHEVERRIA AT [phone]. CM CALLED AND WAS UNABLE TO LEAVE A MESSAGE DUE TO NO VOICE MAIL FOR CARLOS DUNHAM, [phone]. CM [facility] IN[facility], . CM CALLED AND SPOKE TO MALCOLM AT [facility], WENT OVER MEDICATION LIST, THEY WILL ACCEPT PT TODAY. NURSE REPORT TO BE CALLED TO NAT AT [facility] AT [phone]. PT TO TRANSPORT VIA AMBULANCE. CORTEZ ROSA CASE MANAGEMENT DCP- Discharge Planning Updated by [id number]: Cortez Rosa on 09/02/18 11:[address] Patient Name: ESSENCE DUNHAM Encounter No: [id number] : 1945 Primary Insurance: MEDICARE A & B Anticipated DC Date: Planned Disposition: Detention Facility External Planned Provider: [facility] MEDICARE REHAB BED DCP follow-up note: CM FAXED HOSPITAL UPDATE TO [facility] [phone]. FOR DISCHARGE, FAX DISCHARGE INFORMATION TO [facility], . NURSE REPORT TO BE CALLED TO [facility] AT [phone]. [facility] TO ARRANGE VAN TRANSPORTATION IF PT IS ABLE TO SIT SAFELY FOR DURATION OF TRANSPORT TO FACILITY. ISRAEL BRIDGES DCP- Discharge Planning Updated by [id number]: Yanely Ledezma on 08/30/18 5:[address] Patient Name: ESSENCE DUNHAM Admission Status: ER Accout number: [id number] Admission Date: 08-24-2018 : 1945 Admission Diagnosis:PNEUMONIA, UNSPECIFIED ORGANISM Attending: KELVIN PAEZ Current LOS: 6 Anticipated DC Date: Planned Disposition: Detention Facility Primary Insurance: MEDICARE A & B Discharge Planning Comments: CM met patient at bedside. Patient is slow to responded to CM questions but does answer appropriately. Patient was in [facility] for rehab prior to admission. Plans on returning for Rehab upon discharge. CM spoke with [facility] to if they are planning on patient returning to their facility upon discharge. They are planning on accepting patient back to their facility as long as they can meet her needs. CM will continue to follow and assist with discharge planning / needs. Store Protection Specialist: Yanely Ledezma DCPIA - Discharge Planning Initial Assessment Updated by [id number]: Yanely Ledezma on 08/30/18 6:13 pm * Is the patient Alert and Oriented? Yes * Preadmission Environment Detention Facility * Facility Name [facility] * List name and contact numbers for known caregivers / representatives who currently or will assist patient after discharge: MARQUIS ECHEVERRIA - [phone] * Verbal permission to speak to the caregivers and representatives has been obtained from the patient. Yes * Additional services required to return to the preadmission environment? No * Can the patient safely return to the preadmission environment? Yes * Has this patient been hospitalized within the prior 30 days at any hospital? Yes Coverage Notice Reviewer: [email or web address] Jun Rosa Notice Issued Date-Time: 09/05/2018 13:25 Notice Type: IM Discharge Notice Notice Delivered To: Patient Relationship to Patient: Case Sealer Name: Delivery Method: HAND - Hand Delivered Yazmin Days: Prior Verbal Notification: Recipient Understood Notice: Yes Recipient Signature: Yes Med Rec Note Co-signed by Attending: Coverage Notice Comment: Last DP export: 09/05/18 3:33 p Patient Name: ESSENCE DUNHAM Page 26881 at 1640 All edits/amendments must be made on the electronic document DICTATION DATE: 09/05/18 1640 SUPERVISOR PORCELAIN DEPARTMENT: DUNG 09/05/18 1640 RPT#: [id number] DC DATE: STATUS: ADM IN [facility] [address] [place] [address] END OF REPORT
--- NOTE | 2018-09-05 17:15 | NUR ---
REPORT CALLED TO NAT AT [facility]
--- NOTE | 2018-09-05 19:30 | NUR ---
RESUMING PATIENT CARE. PATIENT IS ALERT AND PLEASANTLY CONFUSED. PATIENT RESTING COMFORTABLY IN BED. RESPIRATIONS ARE EVEN AND UNLABORED. NO S/S OF DISTRESS. NO C/O PAIN. DENIES NEEDS AT THIS TIME. CALL LIGHT WITHIN REACH. WILL CPOC.
--- NOTE | 2018-09-05 21:28 | NUR ---
LEFT WITH EMS TO [facility].
--- NOTE | 2018-09-06 12:49 | MORECARE ---
CASE MANAGEMENT DISCHARGE SUMMARY PATIENT: ESSENCE DUNHAM UNIT: [id number] ADM DATE: 08/24/18 AGE: 72 : [birth year] SEX: F ROOM/BED: D.7471 AUTHOR: ELKE MEDINA PHYSICIAN: REFERRING PHYSICIAN: KELVIN PAEZ DO DATE OF SERVICE: 09/06/18 Discharge Plan Patient Name: ESSENCE DUNHAM Facility: [facility]:[place] : 1945 Planned Disposition: Penitentiary Facility Anticipated Discharge Date: 09/05/18 Discharge Date: 09/05/2018 Expected LOS: 12 Initial Reviewer: [id number] Initial Review Date: 08/30/2018 Generated: 09/06/18 1:48 pm Comments DCP- Discharge Planning Updated by [email or web address]: Home Rosa on 09/06/18 11:[address] Patient Name: ESSENCE DUNHAM Encounter No: [id number] : 1945 Primary Insurance: MEDICARE A & B Anticipated DC Date: 09-05-2018 Planned Disposition: Penitentiary Facility External Planned Provider: [facility], MEDICARE REHAB BED DCP follow-up note: CM RECEIVED CALL FROM IRAM [facility] WHO ASKED THAT CM FAX RECORDS SHE DID NOT RECEIVE THEM FROM YESTERDAY. CM EXPLAINED THAT CM HAD TALKED TO MALCOLM [facility] WHO HAD RECEIVED PAPERWORK UPDATES PRIOR TO PT'S RETURN YESTERDAY. IRAM CHECKED AND COULD NOT FIND ANYTHING OTHER THAN THE DISCHARGE MEDICATION LIST. CM FAXED HOSPITAL STAY RECORDS ALONG WITH DISCHARGE INFORMATION TO [facility], . HOME ROSA, CASE MANAGEMENT DCP- Discharge Planning Updated by [id number]: Home Rosa on 09/05/18 3:[address] Patient Name: ESSENCE DUNHAM Encounter No: [id number] : 1945 Primary Insurance: MEDICARE A & B Anticipated DC Date: Planned Disposition: Penitentiary Facility External Planned Provider: [facility], MEDICARE REHAB BED DCP follow-up note: CM RECEIVED INPATIENT RESCREENING ORDER, REVIEWED CHART, PT HAS BEEN DECLINED BY INPATIENT REHAB. PT HAS [facility]ILITY BED HOLDING AT [facility]. CM FAXED HOSPITAL UPDATE TO [facility] [phone]. CM CALLED AND LEFT GERARDOAG Narcisa FOR [facility] OF [facility], , OF POSSIBLE DISCHARGE AND UPDATE BEING FAXED. FOR DISCHARGE, FAX DISCHARGE INFORMATION TO [facility] [place], . NURSE REPORT TO BE CALLED TO [facility] AT [phone]. [facility] TO ARRANGE VAN TRANSPORTATION IF PT IS ABLE TO SIT SAFELY FOR DURATION OF TRANSPORT TO FACILITY. HOME ROSA, CASE MANAGEMENT Appended by Home Rosa on 09/05/2018 16:33 CDT: CM SPOKE TO PT IN ROOM, NOTIFIED OF DISCHARGE, PT IN AGREEMENT WITH RETURN TO [facility], ASKED THAT CM CALL HER FRIEND AND DAUGHTER. CM CALLED AND NOTIFIED MARQUIS ECHEVERRIA AT [phone]. CM CALLED AND WAS UNABLE TO LEAVE A MESSAGE DUE TO NO VOICE MAIL FOR CARLOS DUNHAM, [phone]. CM FAXED DISCHARGE INFORMATION TO [facility] [place], . CM CALLED AND SPOKE TO MALCOLM AT [facility], WENT OVER MEDICATION LIST, THEY WILL ACCEPT PT TODAY. NURSE REPORT TO BE CALLED TO NAT AT [facility] AT [phone]. PT TO TRANSPORT VIA AMBULANCE. ISRAEL BRIDGES DCP- Discharge Planning Updated by [email or web address]: Home Rosa on 09/02/18 11:[address] Patient Name: ESSENCE DUNHAM Encounter No: [id number] : 1945 Primary Insurance: MEDICARE A & B Anticipated DC Date: Planned Disposition: Penitentiary Facility External Planned Provider: [facility], MEDICARE REHAB BED DCP follow-up note: CM FAXED HOSPITAL UPDATE TO [place] [phone]. FOR DISCHARGE, FAX DISCHARGE INFORMATION TO [facility] [place], . NURSE REPORT TO BE CALLED TO [facility] AT [phone]. [facility] TO ARRANGE VAN TRANSPORTATION IF PT IS ABLE TO SIT SAFELY FOR DURATION OF TRANSPORT TO FACILITY. HOME ROSA CASE ALE DCP- Discharge Planning Updated by [id number]: Yanely Ledezma on 08/30/18 5:[address] Patient Name: ESSENCE DUNHAM Admission Status: ER Accout number: [id number] Admission Date: 08-24-2018 : 1945 Admission Diagnosis:PNEUMONIA, UNSPECIFIED ORGANISM Attending: KELVIN PAEZ Current LOS: 6 Anticipated DC Date: Planned Disposition: Penitentiary Facility Primary Insurance: MEDICARE A & B Discharge Planning Comments: CM met patient at bedside. Patient is slow to responded to CM questions but does answer appropriately. Patient was in [facility] for rehab prior to admission. Plans on returning for Rehab upon discharge. CM spoke with [facility] to if they are planning on patient returning to their facility upon discharge. They are planning on accepting patient back to their facility as long as they can meet her needs. CM will continue to follow and assist with discharge planning / needs. Value Analyst: Yanely Ledezma DCClinton - Discharge Planning Initial Assessment Updated by [id number]: Yanely Ledezma on 08/30/18 6:13 pm * Is the patient Alert and Oriented? Yes * Preadmission Environment Penitentiary Facility * Facility Name [facility] * List name and contact numbers for known caregivers / representatives who currently or will assist patient after discharge: MARQUIS JACKI - [phone] * Verbal permission to speak to the caregivers and representatives has been obtained from the patient. Yes * Additional services required to return to the preadmission environment? No * Can the patient safely return to the preadmission environment? Yes * Has this patient been hospitalized within the prior 30 days at any hospital? Yes Coverage Notice Reviewer: [id number] Jun Rosa Notice Issued Date-Time: 09/05/2018 13:25 Notice Type: IM Discharge Notice Notice Delivered To: Patient Relationship to Patient: Agriculture Laborer Name: Delivery Method: HAND - Hand Delivered Yazmin Days: Prior Verbal Notification: Recipient Understood Notice: Yes Recipient Signature: Yes Med Rec Note Co-signed by Attending: Coverage Notice Comment: Last DP export: 09/05/18 3:40 p Patient Name: ESSENCE DUNHAM Page 24491 at 1249 All edits/amendments must be made on the electronic document DICTATION DATE: 09/06/188 PRINT MACHINE OPERATOR: DUNG 09/06/18 1248 RPT#: [id number] DC DATE:09/05/18 STATUS: DIS IN [facility] [address] [facility] [place] [address] END OF REPORT
--- NOTE | 2018-09-06 14:07 | MORECARE ---
CASE MANAGEMENT DISCHARGE SUMMARY PATIENT: ESSENCE DUNHAM UNIT: [id number] ADM DATE: 08/24/18 AGE: 72 : [birth year] SEX: F ROOM/BED: D.6015 AUTHOR: ADAM,ELKE PHYSICIAN: REFERRING PHYSICIAN: KELVIN PAEZ DO DATE OF SERVICE: 09/06/18 Discharge Plan Patient Name: ESSENCE DUNHAM Facility: [facility]:[place] : 1945 Planned Disposition: [facility] Facility Anticipated Discharge Date: 09/05/18 Discharge Date: 09/05/2018 Expected LOS: 12 Initial Reviewer: [id number] Initial Review Date: 08/30/2018 Generated: 09/06/18 3:07 pm Comments DCP- Discharge Planning Updated by [id number]: Cortez Rosa on 09/06/18 1:[address] Patient Name: ESSENCE DUNHAM Encounter No: [id number] : 1945 Primary Insurance: MEDICARE A & B Anticipated DC Date: 09-05-2018 Planned Disposition: [facility] Facility External Planned Provider: [facility], MEDICARE REHAB BED DCP follow-up note: CM RECEIVED CALL FROM [facility] WHO ASKED THAT CM FAX RECORDS SHE DID NOT RECEIVE THEM FROM YESTERDAY. CM EXPLAINED THAT CM HAD TALKED TO MALCOLM [facility] WHO HAD RECEIVED PAPERWORK UPDATES PRIOR TO PT'S RETURN YESTERDAY. IRAM CHECKED AND COULD NOT FIND ANYTHING OTHER THAN THE DISCHARGE MEDICATION LIST. CM FAXED HOSPITAL STAY RECORDS ALONG WITH DISCHARGE INFORMATION TO [facility], . CORTEZ ROSA, CASE MANAGEMENT Appended by Cortez Rosa on 09/06/2018 14:00 CDT: CM RECEIVED CALL FROM [facility] WHO REPORTS RECEIVING PARTIAL FAX FROM AND ASKED CM FAX TO NURSING, NOT ADMIN NUMBER AT FACILITY. CM FAXED HOSPITAL STAY RECORDS ALONG WITH DISCHARGE INFORMATION TO [facility], . CORTEZ ROSA CASE ALE DCP- Discharge Planning Updated by [id number]: Cortez Rosa on 09/05/18 3:[address] Patient Name: ESSENCE DUNHAM Encounter No: [id number] : 1945 Primary Insurance: MEDICARE A & B Anticipated DC Date: Planned Disposition: [facility] Facility External Planned Provider: [facility], MEDICARE REHAB BED DCP follow-up note: CM RECEIVED INPATIENT RESCREENING ORDER, REVIEWED CHART, PT HAS BEEN DECLINED BY INPATIENT REHAB. PT HAS [facility] BED HOLDING AT [facility]. CM FAXED HOSPITAL UPDATE TO [facility] [phone]. CM CALLED AND LEFT ORIANA ENRIQUEZ OF [facility], , OF POSSIBLE DISCHARGE AND UPDATE BEING FAXED. FOR DISCHARGE, FAX DISCHARGE INFORMATION TO [facility], . NURSE REPORT TO BE CALLED TO [facility] AT [phone]. [facility] TO ARRANGE VAN TRANSPORTATION IF PT IS ABLE TO SIT SAFELY FOR DURATION OF TRANSPORT TO FACILITY. CORTEZ ROSA, CASE MANAGEMENT Appended by Cortez Rosa on 09/05/2018 16:33 CDT: CM SPOKE TO PT IN ROOM, NOTIFIED OF DISCHARGE, PT IN AGREEMENT WITH RETURN TO [facility], ASKED THAT CM CALL HER FRIEND AND DAUGHTER. CM CALLED AND NOTIFIED MARQUIS JACKI AT [phone]. CM CALLED AND WAS UNABLE TO LEAVE A MESSAGE DUE TO NO VOICE MAIL FOR CARLOS DUNHAM, [phone]. CM FAXED DISCHARGE INFORMATION TO [facility], . CM CALLED AND SPOKE TO MALCOLM AT [facility], WENT OVER MEDICATION LIST, THEY WILL ACCEPT PT TODAY. NURSE REPORT TO BE CALLED TO NAT AT [facility] AT [phone]. PT TO TRANSPORT VIA AMBULANCE. CORTEZ ROSA, CASE MANAGEMENT DCP- Discharge Planning Updated by [id number]: Cortez Rosa on 09/02/18 11:[address] Patient Name: ESSENCE DUNHAM Encounter No: [id number] : 1945 Primary Insurance: MEDICARE A & B Anticipated DC Date: Planned Disposition: [facility] Facility External Planned Provider: [facility], MEDICARE REHAB BED DCP follow-up note: CM FAXED HOSPITAL UPDATE TO [facility] [phone]. FOR DISCHARGE, FAX DISCHARGE INFORMATION TO [facility], . NURSE REPORT TO BE CALLED TO [facility] AT [phone]. [facility] TO ARRANGE VAN TRANSPORTATION IF PT IS ABLE TO SIT SAFELY FOR DURATION OF TRANSPORT TO FACILITY. CORTEZ ROSA, CASE MANAGEMENT DCP- Discharge Planning Updated by [id number]: Yanely Ledezma on 08/30/18 5:[address] Patient Name: ESSENCE DUNHAM Admission Status: ER Accout number: [id number] Admission Date: 08-24-2018 : 1945 Admission Diagnosis:PNEUMONIA, UNSPECIFIED ORGANISM Attending: KELVIN PAEZ Current LOS: 6 Anticipated DC Date: Planned Disposition: [facility] Facility Primary Insurance: MEDICARE A & B Discharge Planning Comments: CM met patient at bedside. Patient is slow to responded to CM questions but does answer appropriately. Patient was in [facility] for rehab prior to admission. Plans on returning for Rehab upon discharge. CM spoke with [facility] to if they are planning on patient returning to their facility upon discharge. They are planning on accepting patient back to their facility as long as they can meet her needs. CM will continue to follow and assist with discharge planning / needs. Local Tanker Truck Driver: Yanely Ledezma DCPIA - Discharge Planning Initial Assessment Updated by [id number]: Yanely Ledezma on 08/30/18 6:13 pm * Is the patient Alert and Oriented? Yes * Preadmission Environment [facility] Facility * Facility Name [facility] * List name and contact numbers for known caregivers / representatives who currently or will assist patient after discharge: MARQUIS ECHEVERRIA - [phone] * Verbal permission to speak to the caregivers and representatives has been obtained from the patient. Yes * Additional services required to return to the preadmission environment? No * Can the patient safely return to the preadmission environment? Yes * Has this patient been hospitalized within the prior 30 days at any hospital? Yes Coverage Notice Reviewer: [id number] - Cortez Rosa Notice Issued Date-Time: 09/05/2018 13:25 Notice Type: IM Discharge Notice Notice Delivered To: Patient Relationship to Patient: Pizza Chef Name: Delivery Method: HAND - Hand Delivered Yazmin Days: Prior Verbal Notification: Recipient Understood Notice: Yes Recipient Signature: Yes Med Rec Note Co-signed by Attending: Coverage Notice Comment: Last DP export: 09/06/18 11:49 a Patient Name: ESSENCE DUNHAM Page 18135 at 1407 All edits/amendments must be made on the electronic document DICTATION DATE: 09/06/181406 DRAFTING CLERK: DUNG 09/06/181406 RPT#: [id number] DC DATE:09/05/18 STATUS: DIS IN [facility] [address] [place] [address] END OF REPORT
== END 2018-09-05 21:28 | DRG 208 ==
LOC: D.ER 18:53 → D.M2 20:10 → D.ICU 20:10 → D.EDHOLD 20:10 → D.ICU 20:31 → D.M2 08-30 19:02
PROVIDERS: Emergency Medicine; Internal Medicine Nephrology; Internal Medicine Pulmonary Disease; ADMIT Family Medicine; ATTEND Family Medicine
PROC: 5A1945Z Respiratory Ventilation, 24-96 Consecutive Hours (ICD-10-PCS; principal; 2018-08-26)
PROC: 0BH17EZ Insertion of Endotracheal Airway into Trachea, Via Natural or Artificial Opening (ICD-10-PCS; 2018-08-26)
PROC: 0B9F7ZX Drainage of Right Lower Lung Lobe, Via Natural or Artificial Opening, Diagnostic (ICD-10-PCS; 2018-08-26)
PROC: 0B9C7ZX Drainage of Right Upper Lung Lobe, Via Natural or Artificial Opening, Diagnostic (ICD-10-PCS; 2018-08-26)
DX: J96.01 Acute respiratory failure with hypoxia (principal); J18.1 Lobar pneumonia, unspecified organism; G93.41 Metabolic encephalopathy; I50.33 Acute on chronic diastolic (congestive) heart failure; I13.0 Hypertensive heart and chronic kidney disease with heart failure and stage 1 through stage 4 chronic kidney disease, or unspecified chronic kidney disease; N17.9 Acute kidney failure, unspecified; J44.0 Chronic obstructive pulmonary disease with (acute) lower respiratory infection; J44.1 Chronic obstructive pulmonary disease with (acute) exacerbation; J98.11 Atelectasis; E11.22 Type 2 diabetes mellitus with diabetic chronic kidney disease; N18.9 Chronic kidney disease, unspecified; F03.90 Unspecified dementia, unspecified severity, without behavioral disturbance, psychotic disturbance, mood disturbance, and anxiety; K21.9 Gastro-esophageal reflux disease without esophagitis; Z79.4 Long term (current) use of insulin; I48.2 Chronic atrial fibrillation; D63.1 Anemia in chronic kidney disease; M46.40 Discitis, unspecified, site unspecified; T36.8X5A Adverse effect of other systemic antibiotics, initial encounter; I48.91 Unspecified atrial fibrillation; Y95 Nosocomial condition

== ENCOUNTER 2018-09-30 09:34 | Outpatient (CLI) | payer MEDICARE, OTHER ==
[~2018-09-30] VITALS: Ht 165.1 cm; Wt 103.2 kg
[~2018-09-30 09:34] MED LIST changes: +ALENDRONATE SODI5 MG; +ATROVENT 0.02%2.5 ML UPD; +BREO ELLIPTA 11 EACH INH; +CALCIUM 500 +1 EAC3 PO; +CARDIZEM60 MG PO; +CUBICIN500 MG IV; +CYCLOBENZAPRINE10 MG PO; +CYMBALTA60 MG PO; +FERROUS SULFAT325 MG PO; +LANOXIN125 MCG PO; +LANTUS INSULIN10 ML SC; +MIRALAX17 GM PO; +MULTI-DAY VITAM1 TAB PO; +NOVOLOG100 UNIT/1 SC; +ROCEPHIN 1 GM/D51 G1 IV; +Xopenex 0.63 MG INH UPD; +ZINC-220220 MG PO; +ZYVOX600 MG PO
[2018-09-30 11:42] VITALS: BP 111/41; Ht 165.1 cm; Wt 103.2 kg
--- NOTE | 2018-09-30 12:20 | NUR ---
AFTER MULTIPLE CALLS TO [facility] TO OBTAIN ORDERS FOR IRON INFUSION, FREDI, DIRECTOR OF NURSES AT [facility] CALLS BACK AND STATES THAT "IT IS UNCLEAR WHAT DOCTOR WAS ORDERING THIS AND WHAT THE SPECIFIC MEDICATION ORDER IS, SO I AM SENDING MY CRAWLER DRAGLINE OPERATOR BACK TO GET THE PATIENT AND WE WILL HAVE TO RESCHEDULE." PATIENT INFORMED. PATIENT LYING ON STRETCHER, AWAITING TRANSPORTATION TO TRANSPORT PATIENT.
--- NOTE | 2018-09-30 13:30 | NUR ---
PATIENT UP IN WHEELCHAIR, AWAITING TRANSPORTATION STAFF FROM [facility] TO TRANSPORT PATIENT BACK TO FACILITY. PATIENT AWAKE, ALERT, DENIES COMPLAINTS
== END 2018-09-30 13:40 | disposition home or self-care (01) ==
LOC: D.OPS 09:34
PROVIDERS: ATTEND Internal Medicine Geriatric Medicine
DX: R74.8 Abnormal levels of other serum enzymes (principal)